=== PATIENT | female | born 1995 | race Caucasian/White ===

== ENCOUNTER 2021-08-01 13:18 | Inpatient (IN) | payer OTHER, SELFPAY ==
[2021-08-01] VITALS (18 sets, daily range): BP systolic 104–131; BP diastolic 53–76; PULSE 110–138; RESP 15–30; TEMP 36.7–38.1; O2SAT 80–100; BMI 22.9
[2021-08-01] MEDS: SODIUM CHLORIDE 0.9% 1,000 ML 1000 ML IV ×3 (13:55→18:21)
[2021-08-01] MEDS: ONDANSETRON 4 MG/2 ML INJ IV (13:55)
[2021-08-01 13:57] LABS: Add Manual Diff / Slide Review NO; Basophils Absolute Auto 0 /uL (0-100); Basophils Percent Auto 0.1 % (0-2); Eosinophils Absolute Auto 0 /uL (0-450); Hematocrit 40.3 % (36-46); Hemoglobin 12.5 g/dL (12.0-16.0); Lymphocytes Absolute Auto 2200 /uL (1100-4500); Lymphocytes Percent Auto 10.1 % (25-40); Mean Corpuscular HGB Conc 30.9 % (30-36); Mean Corpuscular Hemoglobin 25.3 PG (26-34); Monocytes Absolute Auto 800 /uL (0-900); Monocytes Percent Auto 3.4 % (3-14); Neutrophils Absolute Auto 19100 /uL (1500-7000); Neutrophils Percent Auto 86.4 % (50-75); Platelet Count 507 X10^3/uL (150-400); Red Blood Cell Count 4.92 X10^6/uL (4.0-5.2); Red Cell Distribution Width 15.2 % (11.6-14.8); White Blood Cell Count 22.2 X10^3/uL (4.5-11.0)
[2021-08-01 14:07] LABS: HEMOLYSIS < 15 (0-50)
[2021-08-01 14:12] LABS: Alanine Aminotransferase 32 IU/L (<35); Albumin Globulin Ratio 1.5 (1.0-2.8); Alkaline Phosphatase 107 U/L (38-126); Aspartate Aminotransferase 51 IU/L (14-36); BUN Creatinine Ratio 26.2 (6-22); Bilirubin Total 0.5 mg/dL (0.2-1.3); Blood Urea Nitrogen 22 mg/dL (7-17); Calcium 9.7 mg/dL (8.4-10.2); Carbon Dioxide 10 mmol/L (22-32); Chloride 106 mmol/L (98-107); Estimated Glomerular Filt Rate > 60.0 mL/min (>60); Globulin 3.3 g/dL (1.7-4.1); Glucose 357 mg/dL (70-100); Potassium 4.9 mmol/L (3.4-5.1); Sodium 138 mmol/L (137-145); Total Protein 8.3 g/dL (6.3-8.2)
[2021-08-01 14:14] LABS: Lactate (Lactic Acid) 2.1 mmol/L (0.7-2.1)
[2021-08-01 14:29] LABS: Procalcitonin 4.82 ng/mL (<0.5)
--- NOTE | 2021-08-01 14:29 | ED_ITS ---
HPI - General Adult General Chief complaint: Diabetic Problem Stated complaint: throwing up, diabetic Time Seen by Provider: 08/01/21 13:30 Source: patient and family (father) Mode of arrival: Wheelchair Limitations: no limitations History of Present Illness HPI narrative: This is a 26-year-old female who is an insulin-dependent diabetic. Patient has an insulin pump, she is on metformin, duloxetine, AcipHex Zofran as needed, Minocycline and Tri-Estrayalla. According to patient and her father she has been admitted 4 times in [place] for either DKA and/or gastroparesis. She has had an official swallow evaluation at [facility] in [place] been diagnosed with gastroparesis and has known retinopathy and even required injections into 1 of her eyes. She has not had any prior surgeries. States that her glucose has been high on her pump for the last several days. She flew out here yesterday from [place] to visit her family. She denies fevers or chills. No cold cough or congestion. No chest pain or shortness of breath she does have abdominal pain. She has been vomiting since yesterday evening. She denies any diarrhea or constipation. She states she has had some decrease in urine output but no dysuria, frequency or urgency. Patient has not been able to keep down fluids most recently. She is vaccinated for COVID she did have a coworker's test positive at the [facility] she works at in the last 1-2 weeks. She denies tobacco, alcohol or regular illicit drugs but they did try an edible gummy earlier today. She is accompanied by her father. Related Data Home Medications Medication Instructions Recorded Confirmed duloxetine 40 mg capsule,delayed 40 mg PO DAILY 08/01/21 08/01/21 release insulin aspart U-100 100 unit/mL 1 sliding scale dose SUBCUT 08/01/21 08/01/21 subcutaneous cartridge USEASDIRECTD metformin 500 mg tablet 1,000 mg PO BID 08/01/21 08/01/21 minocycline 100 mg capsule 100 mg PO DAILY 08/01/21 08/01/21 norgestimate-ethinyl estradiol 1 tab PO DAILY 08/01/21 08/01/21 0.18 mg/0.215mg/0.25mg-35 mcg(28)tablet (Tri-Estarylla) ondansetron 8 mg disintegrating 8 mg PO Q8H PRN 08/01/21 08/01/21 tablet phentermine 37.5 mg tablet 18.75 mg PO BID 08/01/21 08/01/21 Allergies Allergy/AdvReac Type Severity Reaction Status Date / Time No Known Drug Allergies Allergy Verified 08/01/21 15:27 Review of Systems Review of Systems ROS Unobtainable: All systems reviewed & are unremarkable except as noted in HPI and below Patient History Medical History Gastroparesis Retinopathy Surgical History No pertinent past surgical history Family History (Updated 08/01/21 @ 17:49 by Genaro Carrasquillo DO) Family/Other No problems noted. Father Hypertension Social History Smoking Status: Never smoker alcohol intake: current Exam Narrative Exam Narrative: GEN: Female, alert and oriented, patient appears to be in moderate distress. HEENT: Atraumatic, pupils are equal round reactive to light, extraocular movements are intact, nares are clear. HEART: Tachycardic but Regular rate and rhythm without murmur, clicks, rubs. No swelling bilateral lower extremities. LUNGS:Lungs clear to auscultation, no wheezes, rales, crackles, chest moves symmetrically, no tachypnea accessory muscle use. ABD:bowel sounds normal, soft, non-tender to palpation, no guarding, rebound, rigidity, no masses noted, no hepatosplenomegaly, patient had active dry heaves while I was in the room. :No CVA tenderness MSCL: Non-tender, no muscle atrophy, full range of motion NEURO:CN 2-12 intact, sensation normal SKIN: No rash, erythema or skin changes. Initial Vital Signs Initial Vital Signs: Vital Signs Temperature 98.3 F 08/01/21 13:26 Pulse Rate 131 H 08/01/21 13:26 Respiratory Rate 22 08/01/21 13:26 Blood Pressure 131/76 08/01/21 13:26 Pulse Oximetry 99 08/01/21 13:26 Scores GCS [place] coma scale eye opening: Spontaneous [place] coma scale verbal response: Orientated [place] coma scale motor response: Obey commands [place] coma scale total score: 15 Course Orders Ordered: ED Orders 08/01/21 13:31 EKG-12 Lead Stat 08/01/21 13:44 Complete Blood Count AUTO DIFF Stat Comprehensive Metabolic Panel Stat Ketones (Beta-Hydroxybutyrate) Stat Lactate (Lactic Acid) Stat Osmolality, Serum Stat Test Serum,Qual Stat Procalcitonin Stat 08/01/21 14:10 Blood Culture Stat 08/01/21 14:16 Venous Blood Gas Stat 08/01/21 15:30 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) Stat Acetaminophen (Acetaminophen 325 Mg Tablet) 650 mg PO Q6HR PRN PRN Reason: Fever Dextrose (Dextrose 50 % In Water 25 Gm/50 Ml Syringe) 25 gm IV PRN PRN PRN Reason: Hypoglycemia Duloxetine HCl (Duloxetine 20 Mg Capsule) 40 mg PO DAILY WARREN Enoxaparin Sodium (Enoxaparin 40 Mg/0.4 Ml Syringe) 40 mg SUBCUT DAILY WARREN INSULIN DRIP PREMIX (Myxredlin Drip Premix) 100 unit in 100 mls @ 6 mls/hr IV TITRATE WARREN; Protocol Last Titration: 08/01/21 17:23 Dose: 9.4 mls/hr, 9.4 mls/hr Documented by: LUBA Cosigned by: MSTWAYNE Admin: 08/01/21 15:53 Dose: 6 mls/hr, 6 mls/hr Documented by: KATHLEEN Cosigned by: JEAN-PIERRE Sodium Chloride (Normal Saline 0.9%) 1,000 mls @ 1,000 mls/hr IV BOLUS ONE Stop: 08/01/21 19:26 Metoclopramide HCl (Metoclopramide 10 Mg/2 Ml Inj) 10 mg IV Q6HR PRN PRN Reason: Nausea And Vomiting Non-Formulary Medication (Norgestimate-Ethinyl Estradiol [Tri-Estarylla]) 1 tab PO DAILY WARREN Ondansetron HCl (Ondansetron 4 Mg/2 Ml Inj) 4 mg IV Q4HR PRN PRN Reason: Nausea And Vomiting Discontinued Medications Sodium Chloride (Normal Saline 0.9%) 1,000 mls @ 1,000 mls/hr IV BOLUS ONE Stop: 08/01/21 14:30 Last Infusion: 08/01/21 17:10 Dose: 0 mls/hr Documented by: Admin: 08/01/21 13:55 Dose: 1,000 mls/hr Documented by: JEAN-PIERRE POTASSIUM CHLORIDE IN WATER (Potassium Cl 10 Meq/100 Ml Gabbi) 10 meq in 100 mls @ 100 mls/hr IV Q1H WARREN Stop: 08/01/21 16:59 Last Admin: 08/01/21 17:54 Dose: 100 mls/hr Documented by: Infusion: 08/01/21 17:09 Dose: 0 mls/hr Documented by: Admin: 08/01/21 15:53 Dose: 100 mls/hr Documented by: KATHLEEN Sodium Chloride (Normal Saline 0.9%) 1,000 mls @ 1,000 mls/hr IV BOLUS ONE Stop: 08/01/21 15:49 Last Admin: 08/01/21 15:54 Dose: 1,000 mls/hr Documented by: KATHLEEN Metoclopramide HCl (Metoclopramide 10 Mg/2 Ml Inj) 10 mg IV NOW ONE Stop: 08/01/21 14:46 Last Admin: 08/01/21 15:29 Dose: 10 mg Documented by: KATHLEEN Ondansetron HCl (Ondansetron 4 Mg/2 Ml Inj) 4 mg IV NOW ONE Stop: 08/01/21 13:32 Last Admin: 08/01/21 13:55 Dose: 4 mg Documented by: JEAN-PIERRE Consultations Consultation #1: Dr. Carrasquillo, hospitalist accepts with plan for ICU. Plan to initiate insulin drip, as well as K replacement. Patient appear to be in DKA, she has a pH of 7.198 on VBG. Anion gap of 22 with a bicarb of 10. Her K is 4.9 with a sodium of 138. She does have a leukocytosis, she has an elevated procalcitonin which was discussed. We have not obtained a urine sample to check for infection and COVID swab is pending. No other clear source of infection at this time. We discussed if hospitalist would like CT at this time they defer. Dr. Carrasquillo plans to discuss with spiritual counselor. Vital Signs Vital signs: Vital Signs - 8 hr 08/01/21 13:26 08/01/21 14:20 08/01/21 14:30 Temperature 98.3 F Pulse Rate 131 H 129 H 129 H Respiratory Rate 22 18 17 Blood Pressure 131/76 114/58 L Pulse Oximetry 99 100 100 08/01/21 15:00 08/01/21 15:30 08/01/21 16:00 Temperature Pulse Rate 132 H 132 H 134 H Respiratory Rate 30 H 22 25 H Blood Pressure 120/62 Pulse Oximetry 100 100 100 08/01/21 16:04 08/01/21 16:55 08/01/21 17:13 Temperature 98.1 F Pulse Rate 138 H 135 H 138 H Respiratory Rate 26 H 25 H 18 Blood Pressure 121/58 L 131/72 121/58 L Pulse Oximetry 100 100 100 Medical Decision Making Lab Data Result diagrams: 08/01/21 13:44 08/01/21 13:44 Labs: Lab Results 08/01/21 08/01/21 08/01/21 Range/Units 13:44 13:44 13:44 WBC 22.2 H (4.5-11.0) X10^3/uL RBC 4.92 (4.0-5.2) X10^6/uL Hgb 12.5 (12.0-16.0) g/dL Hct 40.3 (36-46) % MCV 82.0 (80-100) fL MCH 25.3 L (26-34) PG MCHC 30.9 (30-36) % RDW 15.2 H (11.6-14.8) % Plt Count 507 H (150-400) X10^3/uL Neut % (Auto) 86.4 H (50-75) % Lymph % (Auto) 10.1 L (25-40) % [place] % (Auto) 3.4 (3-14) % Eos % (Auto) 0.0 L (2-4) % Baso % (Auto) 0.1 (0-2) % Neut # (Auto) 29237 H (5491-9514) /uL Lymph # (Auto) 2200 (0717-6341) /uL [place] # (Auto) 800 (0-900) /uL Eos # (Auto) 0 (0-450) /uL Baso # (Auto) 0 (0-100) /uL VBG pH (7.33-7.43) VBG pCO2 (45-50) mmHg VBG pO2 (35-45) mmHg VBG HCO3 (23-28) mmol/L VBG Total CO2 (24-29) mmol/L VBG O2 Saturation (70-75) % VBG Base Excess (0-4) mmol/L Sodium 138 (137-145) mmol/L Potassium 4.9 (3.4-5.1) mmol/L Chloride 106 (98-107) mmol/L Carbon Dioxide 10 L (22-32) mmol/L BUN 22 H (7-17) mg/dL Creatinine 0.84 (0.52-1.04) mg/dL Estimated GFR > 60.0 (>60) mL/min BUN/Creatinine Ratio 26.2 H (6-22) Glucose 357 H (70-100) mg/dL Lactate 2.1 (0.7-2.1) mmol/L Calcium 9.7 (8.4-10.2) mg/dL Total Bilirubin 0.5 (0.2-1.3) mg/dL AST 51 H (14-36) IU/L ALT 32 (<35) IU/L Alkaline Phosphatase 107 (38-126) U/L Total Protein 8.3 H (6.3-8.2) g/dL Albumin 5.0 (3.5-5.0) g/dL Globulin 3.3 (1.7-4.1) g/dL Albumin/Globulin Ratio 1.5 (1.0-2.8) Procalcitonin 4.82 H (<0.5) ng/mL Serum , Qual (Negative) Ketones 7.00 H (<0.27) mmol/L SARS-CoV-2 (PCR) (Negative) 08/01/21 08/01/21 08/01/21 Range/Units 13:44 14:16 15:30 WBC (4.5-11.0) X10^3/uL RBC (4.0-5.2) X10^6/uL Hgb (12.0-16.0) g/dL Hct (36-46) % MCV (80-100) fL MCH (26-34) PG MCHC (30-36) % RDW (11.6-14.8) % Plt Count (150-400) X10^3/uL Neut % (Auto) (50-75) % Lymph % (Auto) (25-40) % [place] % (Auto) (3-14) % Eos % (Auto) (2-4) % Baso % (Auto) (0-2) % Neut # (Auto) (9503-5923) /uL Lymph # (Auto) (2735-9427) /uL [place] # (Auto) (0-900) /uL Eos # (Auto) (0-450) /uL Baso # (Auto) (0-100) /uL VBG pH 7.20 L* (7.33-7.43) VBG pCO2 32.5 L (45-50) mmHg VBG pO2 42 (35-45) mmHg VBG HCO3 13 L (23-28) mmol/L VBG Total CO2 14 L (24-29) mmol/L VBG O2 Saturation 67 L (70-75) % VBG Base Excess -15.0 L (0-4) mmol/L Sodium (137-145) mmol/L Potassium (3.4-5.1) mmol/L Chloride (98-107) mmol/L Carbon Dioxide (22-32) mmol/L BUN (7-17) mg/dL Creatinine (0.52-1.04) mg/dL Estimated GFR (>60) mL/min BUN/Creatinine Ratio (6-22) Glucose (70-100) mg/dL Lactate (0.7-2.1) mmol/L Calcium (8.4-10.2) mg/dL Total Bilirubin (0.2-1.3) mg/dL AST (14-36) IU/L ALT (<35) IU/L Alkaline Phosphatase (38-126) U/L Total Protein (6.3-8.2) g/dL Albumin (3.5-5.0) g/dL Globulin (1.7-4.1) g/dL Albumin/Globulin Ratio (1.0-2.8) Procalcitonin (<0.5) ng/mL Serum , Qual Negative (Negative) Ketones (<0.27) mmol/L SARS-CoV-2 (PCR) Negative (Negative) 08/01/21 Range/Units 16:25 WBC (4.5-11.0) X10^3/uL RBC (4.0-5.2) X10^6/uL Hgb (12.0-16.0) g/dL Hct (36-46) % MCV (80-100) fL MCH (26-34) PG MCHC (30-36) % RDW (11.6-14.8) % Plt Count (150-400) X10^3/uL Neut % (Auto) (50-75) % Lymph % (Auto) (25-40) % [place] % (Auto) (3-14) % Eos % (Auto) (2-4) % Baso % (Auto) (0-2) % Neut # (Auto) (7897-2946) /uL Lymph # (Auto) (8713-8380) /uL [place] # (Auto) (0-900) /uL Eos # (Auto) (0-450) /uL Baso # (Auto) (0-100) /uL VBG pH (7.33-7.43) VBG pCO2 (45-50) mmHg VBG pO2 (35-45) mmHg VBG HCO3 (23-28) mmol/L VBG Total CO2 (24-29) mmol/L VBG O2 Saturation (70-75) % VBG Base Excess (0-4) mmol/L Sodium (137-145) mmol/L Potassium (3.4-5.1) mmol/L Chloride (98-107) mmol/L Carbon Dioxide (22-32) mmol/L BUN (7-17) mg/dL Creatinine (0.52-1.04) mg/dL Estimated GFR (>60) mL/min BUN/Creatinine Ratio (6-22) Glucose (70-100) mg/dL Lactate 1.9 (0.7-2.1) mmol/L Calcium (8.4-10.2) mg/dL Total Bilirubin (0.2-1.3) mg/dL AST (14-36) IU/L ALT (<35) IU/L Alkaline Phosphatase (38-126) U/L Total Protein (6.3-8.2) g/dL Albumin (3.5-5.0) g/dL Globulin (1.7-4.1) g/dL Albumin/Globulin Ratio (1.0-2.8) Procalcitonin (<0.5) ng/mL Serum , Qual (Negative) Ketones (<0.27) mmol/L SARS-CoV-2 (PCR) (Negative) Point of Care Testing Glucose POC 391 Point of care testing: Point of Care Testing Glucose POC 391 ECG Data Attestation: I personally reviewed and interpreted this ECG as follows: Prior ECG tracings: not available for review Interpretation: Sinus tachycardia rate of 120 8p are 114 QRS of [address] QTC [address] No acute ST changes. MDM Narrative Medical decision making narrative: This is a 26-year-old female who comes to the emergency department with complaint of persistent vomiting in the setting of insulin-dependent diabetes. Patient appears to be in DKA today with a pH of 7.198, bicarb of 10, anion gap of 22 and positive ketones. Patient's started on insulin drip, fluids with 20 mEq K replacement based on her potassium of 4.9. Patient case was discussed with the hospitalist who accepts with plan for admission to the intensive care unit. Critical Care Time Critical Care Time Critical Care Time: Yes Total Critical Care Time: 55 Attestation: The high probability of a clinically significant, sudden or life threatening deterioration of the [] system(s) required my full and direct attention, inte rvention and personal management. The aggregate critical care time was [] minutes. This time is in addition to time spent performing reported procedures but includes the following: [x] Data Review and interpretation [x] Patient assessment and monitoring of vital signs [x] Documentation [x] Medication orders and management Discharge Plan Departure Patient Disposition: Admitted As Inpatient Clinical Impression: DKA (diabetic ketoacidosis), Vomiting Admit Date/Time: 08/01/21 17:27 Admit Provider: Genaro Carrasquillo
[2021-08-01 14:57] LABS: HCO3 VBG 13 mmol/L (23-28); Oxygen Saturation VBG 67 % (70-75); PCO2 VBG 32.5 mmHg (45-50); PO2 VBG 42 mmHg (35-45); Total CO2 VBG 14 mmol/L (24-29)
[2021-08-01 15:29] LABS: Pregnancy Test Serum,Qual Negative (Negative)
[2021-08-01] MEDS: METOCLOPRAMIDE 10 MG/2 ML INJ IV (15:29)
[2021-08-01 15:49] LABS: Reflexed Lactate in 2 Hours Y
[2021-08-01] MEDS: INSULIN DRIP PREMIX 100 UNIT/100 ML PLAST..BAG 6 UNIT IV (15:53)
[2021-08-01] MEDS: POTASSIUM CHLORIDE IN WATER 10 MEQ/100 ML PIGGYBACK 100 MEQ IV ×4 (15:53→23:27)
--- NOTE | 2021-08-01 16:16 | PC.NURSE ---
Patient removed her personal insulin pump from her right thigh @ 2745 per doc request.
--- NOTE | 2021-08-01 16:31 | PC.NURSE ---
Patient has hx of gatroparesis 4x this year *Sep, Oct, Nov and Apr). All 4 episodes required inpatient tx per father.
[2021-08-01 16:33] LABS: COVID19 - ADMIT (NP swab/PCR) Negative (Negative)
[2021-08-01 16:45] LABS: Lactate 2HR (Lactic Acid Rflx) 1.9 mmol/L (0.7-2.1)
--- NOTE | 2021-08-01 17:46 | PM.HP.1 ---
History of Present Illness History of Present Illness Date Patient Seen: 08/01/21 Time Patient Seen: 17:46 Chief complaint: throwing up, diabetic Narrative: This is a 26-year-old female with a past medical history of type 1 diabetes and gastroparesis, with frequent recent admissions for DKA, recently traveled from [place] to visit family who presents with abdominal pain, nausea, and vomiting since 7:00 p.m. yesterday. She has had difficulty keeping her blood sugars down over the past couple of days. She has not changed her insulin pump since prior to her flight. She denies any issues at her pump site that she is aware of. She denies any recent fever, chills, chest pain, shortness of breath. In the emergency room, the patient was tachycardic and tachypneic, but the remainder of her vital signs were unremarkable. Initial laboratory evaluation showed a WBC of 22.2, platelet count of 507, and hemoglobin of 12.5. VBG showed a pH of 7.20 with a bicarb of 13. Chemistries revealed a bicarb of 10 with an anion gap of 22. Blood glucose was 357. Lactate was 1.9. Procalcitonin was 4.82. Urine prenancy test was negative. Serum ketones were elevated at 7. no imaging was performed. PFH: Father with HTN, mother's side unknown as she came from [facility]. Unable to accurately assess social history given father in room and patient's current severe lethargy. Patient History Medical History Gastroparesis Retinopathy Surgical History No pertinent past surgical history Family & Social History Family History (Updated 08/01/21 @ 17:49 by Genaro Carrasquillo DO) Family/Other No problems noted. Father Hypertension Meds Home Medications and Allergies Home Medications Medication Instructions Recorded Confirmed Type duloxetine 40 mg capsule,delayed 40 mg PO DAILY 08/01/21 08/01/21 History release insulin aspart U-100 100 unit/mL 1 sliding scale dose SUBCUT 08/01/21 08/01/21 History subcutaneous cartridge USEASDIRECTD metformin 500 mg tablet 1,000 mg PO BID 08/01/21 08/01/21 History minocycline 100 mg capsule 100 mg PO DAILY 08/01/21 08/01/21 History norgestimate-ethinyl estradiol 1 tab PO DAILY 08/01/21 08/01/21 History 0.18 mg/0.215mg/0.25mg-35 mcg(28)tablet (Tri-Estarylla) ondansetron 8 mg disintegrating 8 mg PO Q8H PRN 08/01/21 08/01/21 History tablet phentermine 37.5 mg tablet 18.75 mg PO BID 08/01/21 08/01/21 History Allergies Allergy/AdvReac Type Severity Reaction Status Date / Time No Known Drug Allergies Allergy Verified 08/01/21 15:27 Review of Systems Review of Systems Narrative: All other systems reviewed with the patient and are negative unless otherwise stated. Exam Vital Signs (past 8 hours): - 08/01/21 13:26 08/01/21 14:20 08/01/21 14:30 Temperature 98.3 F Pulse Rate 131 H 129 H 129 H Respiratory Rate 22 18 17 Blood Pressure 131/76 114/58 L Pulse Oximetry 99 100 100 08/01/21 15:00 08/01/21 15:30 08/01/21 16:00 Temperature Pulse Rate 132 H 132 H 134 H Respiratory Rate 30 H 22 25 H Blood Pressure 120/62 Pulse Oximetry 100 100 100 08/01/21 16:04 08/01/21 17:13 Temperature Pulse Rate 138 H 138 H Respiratory Rate 26 H 18 Blood Pressure 121/58 L 121/58 L Pulse Oximetry 100 100 Oxygen Delivery Method Room Air Narrative Exam Narrative: GENERAL APPEARANCE: Acutely ill-appearing young female, lethargic. SKIN: Inspection of the skin reveals no rashes, ulcerations or petechiae. HEENT: Normocephalic atraumatic, extraocular muscles are intact, oropharynx is clear and mucous membranes are dry, neck is supple without adenopathy NECK: Supple and symmetric. There was no thyroid enlargement, and no tenderness, or masses were felt. CHEST: Normal AP diameter and normal contour without any kyphoscoliosis. LUNGS: Auscultation of the lungs revealed no wheezes, rhonchi, or rales. CARDIOVASCULAR: Tachycardic with regular rhythm, no murmurs, rubs, or gallops. ABDOMEN: Soft, nontender, and nondistended MUSCULOSKELETAL: There was no tenderness or effusions noted. EXTREMITIES: No cyanosis, clubbing or edema. NEUROLOGIC: Alert at times but very lethargic. Falls asleep easily. No focal neurological deficits. Objective ECG Impression: Sinus tachycardia Labs Result Diagrams: 08/01/21 13:44 08/01/21 13:44 Labs: Laboratory Results - last 24 hr 08/01/21 08/01/21 08/01/21 13:44 13:44 13:44 WBC 22.2 H RBC 4.92 Hgb 12.5 Hct 40.3 MCV 82.0 MCH 25.3 L MCHC 30.9 RDW 15.2 H Plt Count 507 H Neut % (Auto) 86.4 H Lymph % (Auto) 10.1 L [place] % (Auto) 3.4 Eos % (Auto) 0.0 L Baso % (Auto) 0.1 Neut # (Auto) 38414 H Lymph # (Auto) 2200 [place] # (Auto) 800 Eos # (Auto) 0 Baso # (Auto) 0 VBG pH VBG pCO2 VBG pO2 VBG HCO3 VBG Total CO2 VBG O2 Saturation VBG Base Excess Sodium 138 Potassium 4.9 Chloride 106 Carbon Dioxide 10 L BUN 22 H Creatinine 0.84 Estimated GFR > 60.0 BUN/Creatinine Ratio 26.2 H Glucose 357 H Lactate 2.1 Calcium 9.7 Total Bilirubin 0.5 AST 51 H ALT 32 Alkaline Phosphatase 107 Total Protein 8.3 H Albumin 5.0 Globulin 3.3 Albumin/Globulin Ratio 1.5 Procalcitonin 4.82 H Serum , Qual Ketones 7.00 H SARS-CoV-2 (PCR) 08/01/21 08/01/21 08/01/21 13:44 14:16 15:30 WBC RBC Hgb Hct MCV MCH MCHC RDW Plt Count Neut % (Auto) Lymph % (Auto) [place] % (Auto) Eos % (Auto) Baso % (Auto) Neut # (Auto) Lymph # (Auto) [place] # (Auto) Eos # (Auto) Baso # (Auto) VBG pH 7.20 L* VBG pCO2 32.5 L VBG pO2 42 VBG HCO3 13 L VBG Total CO2 14 L VBG O2 Saturation 67 L VBG Base Excess -15.0 L Sodium Potassium Chloride Carbon Dioxide BUN Creatinine Estimated GFR BUN/Creatinine Ratio Glucose Lactate Calcium Total Bilirubin AST ALT Alkaline Phosphatase Total Protein Albumin Globulin Albumin/Globulin Ratio Procalcitonin Serum , Qual Negative Ketones SARS-CoV-2 (PCR) Negative 08/01/21 16:25 WBC RBC Hgb Hct MCV MCH MCHC RDW Plt Count Neut % (Auto) Lymph % (Auto) [place] % (Auto) Eos % (Auto) Baso % (Auto) Neut # (Auto) Lymph # (Auto) [place] # (Auto) Eos # (Auto) Baso # (Auto) VBG pH VBG pCO2 VBG pO2 VBG HCO3 VBG Total CO2 VBG O2 Saturation VBG Base Excess Sodium Potassium Chloride Carbon Dioxide BUN Creatinine Estimated GFR BUN/Creatinine Ratio Glucose Lactate 1.9 Calcium Total Bilirubin AST ALT Alkaline Phosphatase Total Protein Albumin Globulin Albumin/Globulin Ratio Procalcitonin Serum , Qual Ketones SARS-CoV-2 (PCR) Assessment & Plan Assessment & Plan narrative: This is a 26-year-old female with a past medical history of type 1 diabetes and gastroparesis, with frequent recent admissions for DKA, recently traveled from [place] to visit family who presents with abdominal pain, nausea, and vomiting since 7:00 p.m. yesterday. She is admitted to the ICU with diabetic ketoacidosis. 1. DKA in type 1 diabetes, present on admission - pH 7.2, AG 22, CO2 10 on admission labs. Elevated serum ketones. - continue with insulin infusion per protocol, q1h glucose. q4 hr BMP ordered. Initial K 4.9, follow closely. - given leukocytosis check UA and CXR to evaluate for possible infectious causes. Also with elevated procalcitonin. Though suspect component of dehydration. Suspect insulin pump malfunction or medication issue given plane flight. COVID 19 test negative. - continue IVF, give another bolus given tachycardia. - hold home metformin during admission (started for weight loss) - A1c in AM 2. Gastroparesis - continue reglan for now, restart home medications when able. 3. Metabolic encephalopathy - secondary to DKA. GCS 14. - continue treatment of DKA as noted above, evaluate for possible infection as above. Code: Full, surrogate is patient's father at bedside. DVT: Lovenox daily Dispo: Admit to ICU I have utilized all available immediate resources to obtain, update, or review the patient's current medications. I spent 40 minutes providing critical care management this patient. This excludes time spent in performing separately billed procedures. COVID-19 COVID-19 status: Negative Time Spent With Patient Critical Care time: I spent a total of [] minutes of critical care time on this patient's care today; this time is exclusive of procedural time. Quality MIPS - Admit I confirm the patient?s Advance Care Plan is present, Code status is documented, Surrogate decision maker is in patient?s record [If Yes, STOP here]: Yes
--- NOTE | 2021-08-01 17:52 | DI.RAD.S_ITS ---
PROCEDURE: XR CHEST 1V INDICATIONS: DKA , leukocytosis TECHNIQUE: One view of the chest was acquired. COMPARISON: None. FINDINGS: Surgical changes and devices: None. Lungs and pleura: Lungs are clear. No pleural effusions or pneumothorax. Mediastinum: Mediastinal contours appear normal. Heart size is normal. Bones and chest wall: No suspicious bony lesions. Overlying soft tissues appear unremarkable. IMPRESSION: No acute cardiopulmonary pathology. Dictated by: Kailash Thomas M.D. on 08/01/2021 at 18:59 Approved by: Kailash Thomas M.D. on 08/01/2021 at 19:00
[2021-08-01 18:35] LABS: Appearance Urine UA CLEAR; Bilirubin Urine UA NEGATIVE (NEGATIVE); Color Urine UA YELLOW; Glucose Urine UA 2+ g/dL (Negative); Ketones Urine UA 3+ (NEGATIVE); Leukocyte Esterase Urine UA NEGATIVE (NEGATIVE); Nitrite Urine UA NEGATIVE (Negative); Occult Blood Urine UA TRACE-LYSED (Negative); Protein Urine UA TRACE (Negative); Specific Gravity Urine UA 1.025 (1.000-1.035); Urobilinogen Urine UA 0.2 E.U./dL (0.2)
[2021-08-01 18:38] LABS: BUN Creatinine Ratio 25.3 (6-22); Blood Urea Nitrogen 20 mg/dL (7-17); Calcium 8.7 mg/dL (8.4-10.2); Chloride 113 mmol/L (98-107); Estimated Glomerular Filt Rate > 60.0 mL/min (>60); Glucose 328 mg/dL (70-100); HEMOLYSIS < 15 (0-50); Potassium 4.3 mmol/L (3.4-5.1); Sodium 142 mmol/L (137-145)
[2021-08-01 18:40] LABS: Ur Creatinine Normal (Normal); Ur Specific Gravity Normal (Normal); Urine Tetrahydrocannabinol Negative (Negative); Urine pH Normal (Normal)
[2021-08-01 18:41] LABS: UR Morphine/Opiate cutoff 300 Negative (Negative); Urine Amphetamines Negative (Negative); Urine Barbiturates Negative (Negative); Urine Benzodiazepines Negative (Negative); Urine Cocaine Negative (Negative); Urine MDMA Negative (Negative); Urine Methadone Negative (Negative); Urine Methamphetamines Negative (Negative); Urine Oxycodone Negative (Negative); Urine Phencyclidine Negative (Negative); Urine Tricyclic Antidepressant Negative (Negative)
[2021-08-01 18:43] LABS: Bacteria Urine Occasional (0-1); Culture Indicated Urine Cult Not Indicated; Mucus Urine 1+ (Negative); RBC Urine 0-1/HPF (0-5/HPF); Squamous Epithelial Cell Urine 5-10 /HPF (0-5/HPF); WBC Urine 0-1/HPF (0-5/HPF)
--- NOTE | 2021-08-01 18:44 | PC.ADMIT ---
[id number] Admission Note: The patient,Lizzy Olivares,26 y/o, was given written information regarding hospital policies, unit procedures and contact persons. Patient's smoking status: Never smoker. Vital Signs - 8 hr 08/01/21 13:26 08/01/21 14:20 08/01/21 14:30 Temperature 98.3 F Pulse Rate 131 H 129 H 129 H Respiratory Rate 22 18 17 Blood Pressure 131/76 114/58 L Pulse Oximetry 99 100 100 08/01/21 15:00 08/01/21 15:30 08/01/21 16:00 Temperature Pulse Rate 132 H 132 H 134 H Respiratory Rate 30 H 22 25 H Blood Pressure 120/62 Pulse Oximetry 100 100 100 08/01/21 16:04 08/01/21 16:55 08/01/21 17:13 Temperature 98.1 F Pulse Rate 138 H 135 H 138 H Respiratory Rate 26 H 25 H 18 Blood Pressure 121/58 L 131/72 121/58 L Pulse Oximetry 100 100 100 Patient admitted from ED under hospitalist care for DKA. On insulin gtt at 6ml/hr, titrated to hourly BGs. RA, A/Ox4 but lethargic. BP and HR elevated, notified, NS bolus and potassium 10meq running from ED. Actively N/V, made NPO. Using bedside commode. Patient oriented to room, father at bedside.
--- NOTE | 2021-08-01 20:44 | PM.CN.EICU ---
History of Present Illness Consult details Chief complaint: throwing up, diabetic :: This patient was seen via real time interactive two-way audiovisual telecommunication. 26 y.o. female w/ PMHx of T1DM, diabetic gastroparesis and frequent DKA who presented with abdominal pain, nausea and vomiting. Initial AG was 22 with HCO3 of 10; glucose was 357 and the pH was 7.2. She was started on the DKA protocol. UA and portable CXR are inconsistent with infection. Urine was (-). [facility] Medical History Gastroparesis Retinopathy Surgical History No pertinent past surgical history Family History Family/Other No problems noted. Father Hypertension Social History Smoking Status: Never smoker alcohol intake: current Current Medications Current Medications Medications: Home Medications duloxetine 40 mg capsule,delayed release 40 mg PO DAILY 08/01/21 [History Confirmed 08/01/21] insulin aspart U-100 100 unit/mL subcutaneous cartridge 1 sliding scale dose SUBCUT USEASDIRECTD 08/01/21 [History Confirmed 08/01/21] metformin 500 mg tablet 1,000 mg PO BID 08/01/21 [History Confirmed 08/01/21] minocycline 100 mg capsule 100 mg PO DAILY 08/01/21 [History Confirmed 08/01/21] norgestimate-ethinyl estradiol 0.18 mg/0.215mg/0.25mg-35 mcg(28)tablet (Tri-Estarylla) 1 tab PO DAILY 08/01/21 [History Confirmed 08/01/21] ondansetron 8 mg disintegrating tablet 8 mg PO Q8H PRN 08/01/21 [History Confirmed 08/01/21] phentermine 37.5 mg tablet 18.75 mg PO BID 08/01/21 [History Confirmed 08/01/21] Visit Medications (administered) Generic Name Dose Route Start Last Admin Trade Name Freq PRN Reason Stop Dose Admin INSULIN DRIP PREMIX 100 unit in 100 mls @ 6 mls/hr 08/01/21 14:45 08/01/21 19:29 Myxredlin Drip Premix IV 6.3 mls/hr TITRATE WARREN 6.3 mls/hr Titration Protocol Review of Systems Review of Systems Narrative: not performed as patient is sleeping Exam Vital Signs (past 8 hours): - 08/01/21 13:26 08/01/21 14:20 08/01/21 14:30 Temperature 98.3 F Pulse Rate 131 H 129 H 129 H Respiratory Rate 22 18 17 Blood Pressure 131/76 114/58 L Pulse Oximetry 99 100 100 08/01/21 15:00 08/01/21 15:30 08/01/21 16:00 Temperature Pulse Rate 132 H 132 H 134 H Respiratory Rate 30 H 22 25 H Blood Pressure 120/62 Pulse Oximetry 100 100 100 08/01/21 16:04 08/01/21 16:30 08/01/21 16:55 Temperature 98.1 F Pulse Rate 138 H 138 H 135 H Respiratory Rate 26 H 22 25 H Blood Pressure 121/58 L 131/72 Pulse Oximetry 100 100 100 08/01/21 17:01 08/01/21 17:13 08/01/21 20:00 Temperature 100.6 F H Pulse Rate 138 H 123 H Respiratory Rate 18 18 Blood Pressure 121/58 L 104/57 L Pulse Oximetry 80 L 100 99 Oxygen Delivery Method Room Air Oxygen Flow Rate 0 Narrative Exam Narrative: young female who is sleeping Resp Effort & Inspection: normal respiratory effort Cardio Rate: tachycardic Objective Labs Result Diagrams: 08/01/21 13:44 08/01/21 18:08 Labs: Laboratory Results - last 24 hr 08/01/21 08/01/21 08/01/21 13:44 13:44 13:44 WBC 22.2 H RBC 4.92 Hgb 12.5 Hct 40.3 MCV 82.0 MCH 25.3 L MCHC 30.9 RDW 15.2 H Plt Count 507 H Neut % (Auto) 86.4 H Lymph % (Auto) 10.1 L [place] % (Auto) 3.4 Eos % (Auto) 0.0 L Baso % (Auto) 0.1 Neut # (Auto) 07528 H Lymph # (Auto) 2200 [place] # (Auto) 800 Eos # (Auto) 0 Baso # (Auto) 0 VBG pH VBG pCO2 VBG pO2 VBG HCO3 VBG Total CO2 VBG O2 Saturation VBG Base Excess Sodium 138 Potassium 4.9 Chloride 106 Carbon Dioxide 10 L BUN 22 H Creatinine 0.84 Estimated GFR > 60.0 BUN/Creatinine Ratio 26.2 H Glucose 357 H Lactate 2.1 Calcium 9.7 Total Bilirubin 0.5 AST 51 H ALT 32 Alkaline Phosphatase 107 Total Protein 8.3 H Albumin 5.0 Globulin 3.3 Albumin/Globulin Ratio 1.5 Procalcitonin 4.82 H Serum , Qual Urine Color Urine Appearance Urine pH Ur Specific [place] Urine Protein Urine Glucose (UA) Urine Ketones Urine Occult Blood Urine Nitrate Urine Bilirubin Urine Urobilinogen Ur Leukocyte Esterase Urine RBC Urine WBC Ur Squamous Epith Cells Urine Bacteria Urine Mucus Ur Culture Indicated? U Opiates 300ng/mL cut Ur Oxycodone Screen Urine Methadone Screen Ur Barbiturates Screen U Tricyclic Antidepress Ur Phencyclidine Scrn Ur Amphetamines Screen U Methamphetamines Scrn Ur MDMA Scrn (Ecstasy) U Benzodiazepines Scrn Urine Cocaine Screen U Marijuana (THC) Screen Ketones 7.00 H SARS-CoV-2 (PCR) 08/01/21 08/01/21 08/01/21 13:44 14:16 15:30 WBC RBC Hgb Hct MCV MCH MCHC RDW Plt Count Neut % (Auto) Lymph % (Auto) [place] % (Auto) Eos % (Auto) Baso % (Auto) Neut # (Auto) Lymph # (Auto) [place] # (Auto) Eos # (Auto) Baso # (Auto) VBG pH 7.20 L* VBG pCO2 32.5 L VBG pO2 42 VBG HCO3 13 L VBG Total CO2 14 L VBG O2 Saturation 67 L VBG Base Excess -15.0 L Sodium Potassium Chloride Carbon Dioxide BUN Creatinine Estimated GFR BUN/Creatinine Ratio Glucose Lactate Calcium Total Bilirubin AST ALT Alkaline Phosphatase Total Protein Albumin Globulin Albumin/Globulin Ratio Procalcitonin Serum , Qual Negative Urine Color Urine Appearance Urine pH Ur Specific [place] Urine Protein Urine Glucose (UA) Urine Ketones Urine Occult Blood Urine Nitrate Urine Bilirubin Urine Urobilinogen Ur Leukocyte Esterase Urine RBC Urine WBC Ur Squamous Epith Cells Urine Bacteria Urine Mucus Ur Culture Indicated? U Opiates 300ng/mL cut Ur Oxycodone Screen Urine Methadone Screen Ur Barbiturates Screen U Tricyclic Antidepress Ur Phencyclidine Scrn Ur Amphetamines Screen U Methamphetamines Scrn Ur MDMA Scrn (Ecstasy) U Benzodiazepines Scrn Urine Cocaine Screen U Marijuana (THC) Screen Ketones SARS-CoV-2 (PCR) Negative 08/01/21 08/01/21 08/01/21 16:25 18:08 18:20 WBC RBC Hgb Hct MCV MCH MCHC RDW Plt Count Neut % (Auto) Lymph % (Auto) [place] % (Auto) Eos % (Auto) Baso % (Auto) Neut # (Auto) Lymph # (Auto) [place] # (Auto) Eos # (Auto) Baso # (Auto) VBG pH VBG pCO2 VBG pO2 VBG HCO3 VBG Total CO2 VBG O2 Saturation VBG Base Excess Sodium 142 Potassium 4.3 Chloride 113 H Carbon Dioxide 9 L* BUN 20 H Creatinine 0.79 Estimated GFR > 60.0 BUN/Creatinine Ratio 25.3 H Glucose 328 H Lactate 1.9 Calcium 8.7 Total Bilirubin AST ALT Alkaline Phosphatase Total Protein Albumin Globulin Albumin/Globulin Ratio Procalcitonin Serum , Qual Urine Color Yellow Urine Appearance Clear Urine pH 5.0 Ur Specific [place] 1.025 Urine Protein Trace H Urine Glucose (UA) 2+ H Urine Ketones 3+ H Urine Occult Blood Trace-lysed Urine Nitrate Negative Urine Bilirubin Negative Urine Urobilinogen 0.2 Ur Leukocyte Esterase Negative Urine RBC 0-1/hpf Urine WBC 0-1/hpf Ur Squamous Epith Cells 5-10 /hpf H Urine Bacteria Occasional (0-1) Urine Mucus 1+ H Ur Culture Indicated? Cult not indicated U Opiates 300ng/mL cut Ur Oxycodone Screen Urine Methadone Screen Ur Barbiturates Screen U Tricyclic Antidepress Ur Phencyclidine Scrn Ur Amphetamines Screen U Methamphetamines Scrn Ur MDMA Scrn (Ecstasy) U Benzodiazepines Scrn Urine Cocaine Screen U Marijuana (THC) Screen Ketones SARS-CoV-2 (PCR) 08/01/21 18:20 WBC RBC Hgb Hct MCV MCH MCHC RDW Plt Count Neut % (Auto) Lymph % (Auto) [place] % (Auto) Eos % (Auto) Baso % (Auto) Neut # (Auto) Lymph # (Auto) [place] # (Auto) Eos # (Auto) Baso # (Auto) VBG pH VBG pCO2 VBG pO2 VBG HCO3 VBG Total CO2 VBG O2 Saturation VBG Base Excess Sodium Potassium Chloride Carbon Dioxide BUN Creatinine Estimated GFR BUN/Creatinine Ratio Glucose Lactate Calcium Total Bilirubin AST ALT Alkaline Phosphatase Total Protein Albumin Globulin Albumin/Globulin Ratio Procalcitonin Serum , Qual Urine Color Urine Appearance Urine pH Ur Specific [place] Urine Protein Urine Glucose (UA) Urine Ketones Urine Occult Blood Urine Nitrate Urine Bilirubin Urine Urobilinogen Ur Leukocyte Esterase Urine RBC Urine WBC Ur Squamous Epith Cells Urine Bacteria Urine Mucus Ur Culture Indicated? U Opiates 300ng/mL cut Negative Ur Oxycodone Screen Negative Urine Methadone Screen Negative Ur Barbiturates Screen Negative U Tricyclic Antidepress Negative Ur Phencyclidine Scrn Negative Ur Amphetamines Screen Negative U Methamphetamines Scrn Negative Ur MDMA Scrn (Ecstasy) Negative U Benzodiazepines Scrn Negative Urine Cocaine Screen Negative U Marijuana (THC) Screen Negative Ketones SARS-CoV-2 (PCR) Assessment & Plan Assessment and plan (1) DKA (diabetic ketoacidosis): Status: Acute Plan: -Continue DKA protocol as per bedside team
[2021-08-01] MEDS: ACETAMINOPHEN 650 MG SUPP PR (20:52)
[2021-08-01] MEDS: DEXTROSE 5%-0.45% NS 1,000 ML 94 ML IV (21:02)
[2021-08-01 22:11] LABS: BUN Creatinine Ratio 32.8 (6-22); Blood Urea Nitrogen 19 mg/dL (7-17); Calcium 8.3 mg/dL (8.4-10.2); Carbon Dioxide 18 mmol/L (22-32); Chloride 117 mmol/L (98-107); Estimated Glomerular Filt Rate > 60.0 mL/min (>60); Glucose 195 mg/dL (70-100); HEMOLYSIS 20 (0-50); Potassium 4.1 mmol/L (3.4-5.1); Sodium 141 mmol/L (137-145)
--- NOTE | 2021-08-01 23:37 | PC.NURSE ---
ANION GAP: 10.1; BICARB: 18; PATIENT IS VERY LETHARGIC AND NOT ABLE TO TOLERATE PO INTAKE. PATIENT IS FOLLOWING COMMANDS, BUT WILL NOT OPEN EYES SPONTANEOUSLY.
[2021-08-02] VITALS (14 sets, daily range): BP systolic 111–147; BP diastolic 55–95; PULSE 108–123; RESP 13–27; TEMP 36.1–37.3; O2SAT 99–100
[2021-08-02] MEDS: DEXTROSE 10 % IN WATER 1,000 ML 62.5 ML IV (01:08)
[2021-08-02] MEDS: DEXTROSE 5%-0.45% NS 1,000 ML 94 ML IV ×4 (02:21→21:13)
[2021-08-02 05:44] LABS: Add Manual Diff / Slide Review NO; Basophils Absolute Auto 0 /uL (0-100); Eosinophils Absolute Auto 0 /uL (0-450); Hemoglobin 10.6 g/dL (12.0-16.0); Lymphocytes Absolute Auto 2000 /uL (1100-4500); Lymphocytes Percent Auto 9.3 % (25-40); Mean Corpuscular Hemoglobin 25.7 PG (26-34); Mean Corpuscular Volume 80.5 fL (80-100); Monocytes Absolute Auto 1500 /uL (0-900); Neutrophils Absolute Auto 17600 /uL (1500-7000); Neutrophils Percent Auto 83.7 % (50-75); Platelet Count 414 X10^3/uL (150-400); Red Cell Distribution Width 14.8 % (11.6-14.8); White Blood Cell Count 21.1 X10^3/uL (4.5-11.0)
[2021-08-02 05:45] LABS: Alanine Aminotransferase 24 IU/L (<35); Albumin 3.5 g/dL (3.5-5.0); Albumin Globulin Ratio 1.3 (1.0-2.8); Alkaline Phosphatase 65 U/L (38-126); Aspartate Aminotransferase 31 IU/L (14-36); BUN Creatinine Ratio 29.3 (6-22); Bilirubin Total 0.4 mg/dL (0.2-1.3); Blood Urea Nitrogen 17 mg/dL (7-17); Calcium 8.4 mg/dL (8.4-10.2); Carbon Dioxide 18 mmol/L (22-32); Chloride 115 mmol/L (98-107); Estimated Glomerular Filt Rate > 60.0 mL/min (>60); Globulin 2.7 g/dL (1.7-4.1); Glucose 118 mg/dL (70-100); HEMOLYSIS < 15 (0-50); Magnesium 2.1 mg/dL (1.6-2.3); Potassium 3.6 mmol/L (3.4-5.1); Sodium 142 mmol/L (137-145); Total Protein 6.2 g/dL (6.3-8.2)
[2021-08-02 06:01] LABS: Hemoglobin A1C% w Est Avg Glu 13.7 % (4.0-6.0)
--- NOTE | 2021-08-02 09:50 | PM.PN.EICU ---
Subjective Subjective :: This patient was seen via real time interactive two-way audiovisual telecommunication. Current Medications Current Medications Medications: Home Medications duloxetine 40 mg capsule,delayed release 40 mg PO DAILY 08/01/21 [History Confirmed 08/01/21] insulin aspart U-100 100 unit/mL subcutaneous cartridge 1 sliding scale dose SUBCUT USEASDIRECTD 08/01/21 [History Confirmed 08/01/21] metformin 500 mg tablet 1,000 mg PO BID 08/01/21 [History Confirmed 08/01/21] minocycline 100 mg capsule 100 mg PO DAILY 08/01/21 [History Confirmed 08/01/21] norgestimate-ethinyl estradiol 0.18 mg/0.215mg/0.25mg-35 mcg(28)tablet (Tri-Estarylla) 1 tab PO DAILY 08/01/21 [History Confirmed 08/01/21] ondansetron 8 mg disintegrating tablet 8 mg PO Q8H PRN 08/01/21 [History Confirmed 08/01/21] phentermine 37.5 mg tablet 18.75 mg PO BID 08/01/21 [History Confirmed 08/01/21] Visit Medications (administered) Generic Name Dose Route Start Last Admin Trade Name Freq PRN Reason Stop Dose Admin Acetaminophen 650 mg 08/01/21 20:34 08/01/21 20:52 Acetaminophen 650 Mg Supp [place] 650 mg Q6HR PRN Administration Fever/Mild Pain (1-3) INSULIN DRIP PREMIX 100 unit in 100 mls @ 6 mls/hr 08/01/21 14:45 08/02/21 08:37 Myxredlin Drip Premix IV 3.1 mls/hr TITRATE WARREN 3.1 mls/hr Titration Protocol Dextrose/Sodium Chloride 1,000 mls @ 94 mls/hr 08/01/21 19:29 08/02/21 08:38 Dextrose 5%-0.45% Ns IV 94 mls/hr TITRATE PRN Administration Blood Sugar - Low Protocol Dextrose 1,000 mls @ 62.5 mls/hr 08/02/21 00:45 08/02/21 02:27 D10w IV 0 mls/hr CONT WARREN Infusion Objective Labs Result Diagrams: 08/02/21 05:07 08/02/21 05:07 Labs: Laboratory Results - last 24 hr 08/01/21 08/01/21 08/01/21 13:44 13:44 13:44 WBC 22.2 H RBC 4.92 Hgb 12.5 Hct 40.3 MCV 82.0 MCH 25.3 L MCHC 30.9 RDW 15.2 H Plt Count 507 H Neut % (Auto) 86.4 H Lymph % (Auto) 10.1 L [place] % (Auto) 3.4 Eos % (Auto) 0.0 L Baso % (Auto) 0.1 Neut # (Auto) 05144 H Lymph # (Auto) 2200 [place] # (Auto) 800 Eos # (Auto) 0 Baso # (Auto) 0 VBG pH VBG pCO2 VBG pO2 VBG HCO3 VBG Total CO2 VBG O2 Saturation VBG Base Excess Sodium 138 Potassium 4.9 Chloride 106 Carbon Dioxide 10 L BUN 22 H Creatinine 0.84 Estimated GFR > 60.0 BUN/Creatinine Ratio 26.2 H Glucose 357 H Hemoglobin A1c Lactate 2.1 Calcium 9.7 Magnesium Total Bilirubin 0.5 AST 51 H ALT 32 Alkaline Phosphatase 107 Total Protein 8.3 H Albumin 5.0 Globulin 3.3 Albumin/Globulin Ratio 1.5 Procalcitonin 4.82 H Serum , Qual Urine Color Urine Appearance Urine pH Ur Specific [place] Urine Protein Urine Glucose (UA) Urine Ketones Urine Occult Blood Urine Nitrate Urine Bilirubin Urine Urobilinogen Ur Leukocyte Esterase Urine RBC Urine WBC Ur Squamous Epith Cells Urine Bacteria Urine Mucus Ur Culture Indicated? Nasal Screen MRSA (PCR) U Opiates 300ng/mL cut Ur Oxycodone Screen Urine Methadone Screen Ur Barbiturates Screen U Tricyclic Antidepress Ur Phencyclidine Scrn Ur Amphetamines Screen U Methamphetamines Scrn Ur MDMA Scrn (Ecstasy) U Benzodiazepines Scrn Urine Cocaine Screen U Marijuana (THC) Screen Ketones 7.00 H SARS-CoV-2 (PCR) 08/01/21 08/01/21 08/01/21 13:44 14:16 15:30 WBC RBC Hgb Hct MCV MCH MCHC RDW Plt Count Neut % (Auto) Lymph % (Auto) [place] % (Auto) Eos % (Auto) Baso % (Auto) Neut # (Auto) Lymph # (Auto) [place] # (Auto) Eos # (Auto) Baso # (Auto) VBG pH 7.20 L* VBG pCO2 32.5 L VBG pO2 42 VBG HCO3 13 L VBG Total CO2 14 L VBG O2 Saturation 67 L VBG Base Excess -15.0 L Sodium Potassium Chloride Carbon Dioxide BUN Creatinine Estimated GFR BUN/Creatinine Ratio Glucose Hemoglobin A1c Lactate Calcium Magnesium Total Bilirubin AST ALT Alkaline Phosphatase Total Protein Albumin Globulin Albumin/Globulin Ratio Procalcitonin Serum , Qual Negative Urine Color Urine Appearance Urine pH Ur Specific [place] Urine Protein Urine Glucose (UA) Urine Ketones Urine Occult Blood Urine Nitrate Urine Bilirubin Urine Urobilinogen Ur Leukocyte Esterase Urine RBC Urine WBC Ur Squamous Epith Cells Urine Bacteria Urine Mucus Ur Culture Indicated? Nasal Screen MRSA (PCR) U Opiates 300ng/mL cut Ur Oxycodone Screen Urine Methadone Screen Ur Barbiturates Screen U Tricyclic Antidepress Ur Phencyclidine Scrn Ur Amphetamines Screen U Methamphetamines Scrn Ur MDMA Scrn (Ecstasy) U Benzodiazepines Scrn Urine Cocaine Screen U Marijuana (THC) Screen Ketones SARS-CoV-2 (PCR) Negative 08/01/21 08/01/21 08/01/21 16:25 18:08 18:20 WBC RBC Hgb Hct MCV MCH MCHC RDW Plt Count Neut % (Auto) Lymph % (Auto) [place] % (Auto) Eos % (Auto) Baso % (Auto) Neut # (Auto) Lymph # (Auto) [place] # (Auto) Eos # (Auto) Baso # (Auto) VBG pH VBG pCO2 VBG pO2 VBG HCO3 VBG Total CO2 VBG O2 Saturation VBG Base Excess Sodium 142 Potassium 4.3 Chloride 113 H Carbon Dioxide 9 L* BUN 20 H Creatinine 0.79 Estimated GFR > 60.0 BUN/Creatinine Ratio 25.3 H Glucose 328 H Hemoglobin A1c Lactate 1.9 Calcium 8.7 Magnesium Total Bilirubin AST ALT Alkaline Phosphatase Total Protein Albumin Globulin Albumin/Globulin Ratio Procalcitonin Serum , Qual Urine Color Yellow Urine Appearance Clear Urine pH 5.0 Ur Specific [place] 1.025 Urine Protein Trace H Urine Glucose (UA) 2+ H Urine Ketones 3+ H Urine Occult Blood Trace-lysed Urine Nitrate Negative Urine Bilirubin Negative Urine Urobilinogen 0.2 Ur Leukocyte Esterase Negative Urine RBC 0-1/hpf Urine WBC 0-1/hpf Ur Squamous Epith Cells 5-10 /hpf H Urine Bacteria Occasional (0-1) Urine Mucus 1+ H Ur Culture Indicated? Cult not indicated Nasal Screen MRSA (PCR) U Opiates 300ng/mL cut Ur Oxycodone Screen Urine Methadone Screen Ur Barbiturates Screen U Tricyclic Antidepress Ur Phencyclidine Scrn Ur Amphetamines Screen U Methamphetamines Scrn Ur MDMA Scrn (Ecstasy) U Benzodiazepines Scrn Urine Cocaine Screen U Marijuana (THC) Screen Ketones SARS-CoV-2 (PCR) 08/01/21 08/01/21 08/01/21 18:20 18:32 20:51 WBC RBC Hgb Hct MCV MCH MCHC RDW Plt Count Neut % (Auto) Lymph % (Auto) [place] % (Auto) Eos % (Auto) Baso % (Auto) Neut # (Auto) Lymph # (Auto) [place] # (Auto) Eos # (Auto) Baso # (Auto) VBG pH VBG pCO2 VBG pO2 VBG HCO3 VBG Total CO2 VBG O2 Saturation VBG Base Excess Sodium 141 Potassium 4.1 Chloride 117 H Carbon Dioxide 18 L BUN 19 H Creatinine 0.58 Estimated GFR > 60.0 BUN/Creatinine Ratio 32.8 H Glucose 195 H D Hemoglobin A1c Lactate Calcium 8.3 L Magnesium Total Bilirubin AST ALT Alkaline Phosphatase Total Protein Albumin Globulin Albumin/Globulin Ratio Procalcitonin Serum , Qual Urine Color Urine Appearance Urine pH Ur Specific [place] Urine Protein Urine Glucose (UA) Urine Ketones Urine Occult Blood Urine Nitrate Urine Bilirubin Urine Urobilinogen Ur Leukocyte Esterase Urine RBC Urine WBC Ur Squamous Epith Cells Urine Bacteria Urine Mucus Ur Culture Indicated? Nasal Screen MRSA (PCR) Negative for mrsa U Opiates 300ng/mL cut Negative Ur Oxycodone Screen Negative Urine Methadone Screen Negative Ur Barbiturates Screen Negative U Tricyclic Antidepress Negative Ur Phencyclidine Scrn Negative Ur Amphetamines Screen Negative U Methamphetamines Scrn Negative Ur MDMA Scrn (Ecstasy) Negative U Benzodiazepines Scrn Negative Urine Cocaine Screen Negative U Marijuana (THC) Screen Negative Ketones SARS-CoV-2 (PCR) 08/02/21 08/02/21 08/02/21 05:07 05:07 05:07 WBC 21.1 H RBC 4.10 Hgb 10.6 L Hct 33.0 L MCV 80.5 MCH 25.7 L MCHC 32.0 RDW 14.8 Plt Count 414 H Neut % (Auto) 83.7 H Lymph % (Auto) 9.3 L [place] % (Auto) 7.0 Eos % (Auto) 0.0 L Baso % (Auto) 0.0 Neut # (Auto) 79346 H Lymph # (Auto) 2000 [place] # (Auto) 1500 H Eos # (Auto) 0 Baso # (Auto) 0 VBG pH VBG pCO2 VBG pO2 VBG HCO3 VBG Total CO2 VBG O2 Saturation VBG Base Excess Sodium 142 Potassium 3.6 Chloride 115 H Carbon Dioxide 18 L BUN 17 Creatinine 0.58 Estimated GFR > 60.0 BUN/Creatinine Ratio 29.3 H Glucose 118 H Hemoglobin A1c 13.7 H Lactate Calcium 8.4 Magnesium 2.1 Total Bilirubin 0.4 AST 31 ALT 24 Alkaline Phosphatase 65 Total Protein 6.2 L Albumin 3.5 Globulin 2.7 Albumin/Globulin Ratio 1.3 Procalcitonin Serum , Qual Urine Color Urine Appearance Urine pH Ur Specific [place] Urine Protein Urine Glucose (UA) Urine Ketones Urine Occult Blood Urine Nitrate Urine Bilirubin Urine Urobilinogen Ur Leukocyte Esterase Urine RBC Urine WBC Ur Squamous Epith Cells Urine Bacteria Urine Mucus Ur Culture Indicated? Nasal Screen MRSA (PCR) U Opiates 300ng/mL cut Ur Oxycodone Screen Urine Methadone Screen Ur Barbiturates Screen U Tricyclic Antidepress Ur Phencyclidine Scrn Ur Amphetamines Screen U Methamphetamines Scrn Ur MDMA Scrn (Ecstasy) U Benzodiazepines Scrn Urine Cocaine Screen U Marijuana (THC) Screen Ketones SARS-CoV-2 (PCR) Exam Vital Signs (past 8 hours): - 08/02/21 02:00 08/02/21 03:00 08/02/21 04:00 Temperature 98.2 F 96.9 F L Pulse Rate 109 H 110 H 117 H Respiratory Rate 16 14 15 Blood Pressure 114/62 112/56 L 111/55 L Pulse Oximetry 100 100 100 08/02/21 05:00 08/02/21 07:00 08/02/21 08:00 Temperature 98.3 F 98.5 F Pulse Rate 114 H 108 H 110 H Respiratory Rate 13 18 18 Blood Pressure 112/55 L 125/68 115/63 Pulse Oximetry 100 99 100 08/02/21 09:00 Temperature Pulse Rate 115 H Respiratory Rate 17 Blood Pressure 114/57 L Pulse Oximetry 99 Oxygen Delivery Method Room Air Oxygen Flow Rate 0 Assessment & Plan Assessment & Plan narrative: patient see and examined with nursing staff and bedside provider chart/labs/imaging reviewed afebrile, tachycardia bp stable plan -continue dka protocol per primary team -suggest bolus 1-2L of LR for dehydration -re-call tele ICU prn Time Spent With Patient Critical Care time: I spent a total of [] minutes of critical care time on this patient's care today; this time is exclusive of procedural time.
[2021-08-02] MEDS: ENOXAPARIN 40 MG/0.4 ML SYRINGE SUBCUT (09:58)
[2021-08-02] MEDS: POTASSIUM CHLORIDE IN WATER 10 MEQ/100 ML PIGGYBACK 100 MEQ IV ×8 (09:58→21:51)
[2021-08-02] MEDS: DULOXETINE 20 MG CAPSULE 40 MG PO (09:58)
[2021-08-02] MEDS: ONDANSETRON 4 MG/2 ML INJ IV ×3 (11:17→21:48)
[2021-08-02] MEDS: LACTATED RINGERS 1,000 ML 500 ML IV (11:17)
[2021-08-02] MEDS: LACTATED RINGERS 1,000 ML 350 ML IV (14:41)
[2021-08-02 15:38] LABS: BUN Creatinine Ratio 26.9 (6-22); Blood Urea Nitrogen 14 mg/dL (7-17); Calcium 8.6 mg/dL (8.4-10.2); Carbon Dioxide 21 mmol/L (22-32); Chloride 111 mmol/L (98-107); Estimated Glomerular Filt Rate > 60.0 mL/min (>60); Glucose 75 mg/dL (70-100); HEMOLYSIS < 15 (0-50); Potassium 3.8 mmol/L (3.4-5.1); Sodium 139 mmol/L (137-145)
[2021-08-02] MEDS: BENZOCAINE/MENTHOL 1 LOZ PKT 1 EACH PO (16:04)
--- NOTE | 2021-08-02 16:40 | CM.DANOTE ---
DCP/Assessment: Reviewed chart. Patient is a 26yr old female admitted to [facility] with DKA. PCP not listed. Primary payor is 1)Medicaid (out of state[place] Spoke with RN re: update. RN reports that patient continues to be on insulin drip. Patient visiting family in [place] originally from [place]. At this time d/c needs unknown. CM team to continue to follow. P: Home when stable. CM team to see tomorrow. KJS Discharge Planning/Care Management CM Discharge Assessment Start: 08/02/21 16:35 Freq: Status: Active Protocol: Document 08/02/21 16:35 KJS (Rec: 08/02/21 16:39 KJS [id number]) Discharge Planning Assessment Assigned Arch Pad Cementer FERNANDO Stoddard Contact Information Axel Olivares (family) ph# [phone] Advance Directives? No History Provided By Medical Record Prior Living Arrangements Apartment/Condo Independent with ADL's Yes Is patient alert and oriented? Yes Caregiver for Another No Barriers to Discharge No Discharge Plan Home Transportation Arrangement Family to provide transport. Referrals Initiated Other Additional Comment D/C planning needs unclear at this time. CM team to continue to follow. Review Status In Process Next Review Type Continued Stay Review
[2021-08-02] MEDS: INSULIN GLARGINE 100 UNIT/ML 3ML PEN 10 UNIT SUBCUT (17:04)
[2021-08-02] MEDS: METOCLOPRAMIDE 10 MG/2 ML INJ IV (17:05)
[2021-08-02] MEDS: INSULIN DRIP PREMIX 100 UNIT/100 ML PLAST..BAG 9.4 UNIT IV (17:54)
[2021-08-02] MEDS: LACTATED RINGERS 1,000 ML 150 ML IV (18:16)
--- NOTE | 2021-08-02 18:36 | P.PN_ITS ---
Subjective Subjective Interval history: The patient denies any acute complaints this morning. She reports that her appetite is picking back up. Exam Vital Signs (past 8 hours): - 08/02/21 11:35 08/02/21 16:30 Temperature 98.7 F 99.2 F Pulse Rate 110 H Respiratory Rate 18 26 H Blood Pressure 147/95 H 126/58 L Pulse Oximetry 100 100 Oxygen Delivery Method Room Air Oxygen Flow Rate 0 Const Other: Laying in bed comfortably upon my entering the room, in no apparent acute distress. Eyes Other: No scleral icterus appreciated. Resp Other: Clear to auscultation bilaterally. Cardio Other: Tachycardic rate and regular rhythm. S1 and S2 heart sounds heard with no extra heart sounds or murmurs appreciated. No peripheral edema noted. GI Other: Soft, non-distended, non-tender. Bowel sounds present. Extrem Other: Palpable dorsalis pedis pulses bilaterally. Objective Labs Result Diagrams: 08/02/21 05:07 08/02/21 14:45 Labs: Laboratory Results - last 24 hr 08/01/21 08/01/21 08/01/21 18:08 18:20 18:20 WBC RBC Hgb Hct MCV MCH MCHC RDW Plt Count Neut % (Auto) Lymph % (Auto) [place] % (Auto) Eos % (Auto) Baso % (Auto) Neut # (Auto) Lymph # (Auto) [place] # (Auto) Eos # (Auto) Baso # (Auto) Sodium 142 Potassium 4.3 Chloride 113 H Carbon Dioxide 9 L* BUN 20 H Creatinine 0.79 Estimated GFR > 60.0 BUN/Creatinine Ratio 25.3 H Glucose 328 H Hemoglobin A1c Calcium 8.7 Magnesium Total Bilirubin AST ALT Alkaline Phosphatase Total Protein Albumin Globulin Albumin/Globulin Ratio Urine Color Yellow Urine Appearance Clear Urine pH 5.0 Ur Specific [place] 1.025 Urine Protein Trace H Urine Glucose (UA) 2+ H Urine Ketones 3+ H Urine Occult Blood Trace-lysed Urine Nitrate Negative Urine Bilirubin Negative Urine Urobilinogen 0.2 Ur Leukocyte Esterase Negative Urine RBC 0-1/hpf Urine WBC 0-1/hpf Ur Squamous Epith Cells 5-10 /hpf H Urine Bacteria Occasional (0-1) Urine Mucus 1+ H Ur Culture Indicated? Cult not indicated Nasal Screen MRSA (PCR) U Opiates 300ng/mL cut Negative Ur Oxycodone Screen Negative Urine Methadone Screen Negative Ur Barbiturates Screen Negative U Tricyclic Antidepress Negative Ur Phencyclidine Scrn Negative Ur Amphetamines Screen Negative U Methamphetamines Scrn Negative Ur MDMA Scrn (Ecstasy) Negative U Benzodiazepines Scrn Negative Urine Cocaine Screen Negative U Marijuana (THC) Screen Negative 08/01/21 08/01/21 08/02/21 18:32 20:51 05:07 WBC 21.1 H RBC 4.10 Hgb 10.6 L Hct 33.0 L MCV 80.5 MCH 25.7 L MCHC 32.0 RDW 14.8 Plt Count 414 H Neut % (Auto) 83.7 H Lymph % (Auto) 9.3 L [place] % (Auto) 7.0 Eos % (Auto) 0.0 L Baso % (Auto) 0.0 Neut # (Auto) 07047 H Lymph # (Auto) 2000 [place] # (Auto) 1500 H Eos # (Auto) 0 Baso # (Auto) 0 Sodium 141 Potassium 4.1 Chloride 117 H Carbon Dioxide 18 L BUN 19 H Creatinine 0.58 Estimated GFR > 60.0 BUN/Creatinine Ratio 32.8 H Glucose 195 H D Hemoglobin A1c Calcium 8.3 L Magnesium Total Bilirubin AST ALT Alkaline Phosphatase Total Protein Albumin Globulin Albumin/Globulin Ratio Urine Color Urine Appearance Urine pH Ur Specific [place] Urine Protein Urine Glucose (UA) Urine Ketones Urine Occult Blood Urine Nitrate Urine Bilirubin Urine Urobilinogen Ur Leukocyte Esterase Urine RBC Urine WBC Ur Squamous Epith Cells Urine Bacteria Urine Mucus Ur Culture Indicated? Nasal Screen MRSA (PCR) Negative for mrsa U Opiates 300ng/mL cut Ur Oxycodone Screen Urine Methadone Screen Ur Barbiturates Screen U Tricyclic Antidepress Ur Phencyclidine Scrn Ur Amphetamines Screen U Methamphetamines Scrn Ur MDMA Scrn (Ecstasy) U Benzodiazepines Scrn Urine Cocaine Screen U Marijuana (THC) Screen 08/02/21 08/02/21 08/02/21 05:07 05:07 14:45 WBC RBC Hgb Hct MCV MCH MCHC RDW Plt Count Neut % (Auto) Lymph % (Auto) [place] % (Auto) Eos % (Auto) Baso % (Auto) Neut # (Auto) Lymph # (Auto) [place] # (Auto) Eos # (Auto) Baso # (Auto) Sodium 142 139 Potassium 3.6 3.8 Chloride 115 H 111 H Carbon Dioxide 18 L 21 L BUN 17 14 Creatinine 0.58 0.52 Estimated GFR > 60.0 > 60.0 BUN/Creatinine Ratio 29.3 H 26.9 H Glucose 118 H 75 Hemoglobin A1c 13.7 H Calcium 8.4 8.6 Magnesium 2.1 Total Bilirubin 0.4 AST 31 ALT 24 Alkaline Phosphatase 65 Total Protein 6.2 L Albumin 3.5 Globulin 2.7 Albumin/Globulin Ratio 1.3 Urine Color Urine Appearance Urine pH Ur Specific [place] Urine Protein Urine Glucose (UA) Urine Ketones Urine Occult Blood Urine Nitrate Urine Bilirubin Urine Urobilinogen Ur Leukocyte Esterase Urine RBC Urine WBC Ur Squamous Epith Cells Urine Bacteria Urine Mucus Ur Culture Indicated? Nasal Screen MRSA (PCR) U Opiates 300ng/mL cut Ur Oxycodone Screen Urine Methadone Screen Ur Barbiturates Screen U Tricyclic Antidepress Ur Phencyclidine Scrn Ur Amphetamines Screen U Methamphetamines Scrn Ur MDMA Scrn (Ecstasy) U Benzodiazepines Scrn Urine Cocaine Screen U Marijuana (THC) Screen PFSH Medical History Gastroparesis Retinopathy Surgical History No pertinent past surgical history Family History Family/Other No problems noted. Father Hypertension Social History Smoking Status: Never smoker alcohol intake: current Assessment & Plan Assessment & Plan narrative: Assessment: 1. DKA, likely secondary to malfunctioning insulin pump 2. Type I DM 3. Diabetic neuropathy 4. Hx of being on control Plan: 1. Glucose has improved with insulin drip, along with closure of anion gap. Will overlap insulin drip with subcutaneous insulin today, along with encouraging PO intake for patient. IV volume resuscitated. 2. A1c 14%. Patient has injectable insulin, per her report. Therefore, if insulin pump malfunctioning, patient reports she can inject insulin on discharge, until she returns home to [place], [place] this Monday and follows-up with her manufacturing lead next week. 3. Will continue home duloxetine 40 mg daily. 4. patient is on norgestimate-ethinyl estradiol as outpatient. VTE prophylaxis: Lovenox 40 mg daily Disposition: Home Time Spent With Patient Critical Care time: I spent a total of [] minutes of critical care time on this patient's care today; this time is exclusive of procedural time.
[2021-08-02 19:08] LABS: BUN Creatinine Ratio 19.6 (6-22); Blood Urea Nitrogen 11 mg/dL (7-17); Calcium 8.5 mg/dL (8.4-10.2); Carbon Dioxide 12 mmol/L (22-32); Chloride 107 mmol/L (98-107); Estimated Glomerular Filt Rate > 60.0 mL/min (>60); Glucose 304 mg/dL (70-100); HEMOLYSIS < 15 (0-50); Potassium 3.7 mmol/L (3.4-5.1); Sodium 136 mmol/L (137-145)
[2021-08-02 19:15] LABS: PCO2 VBG 23.1 mmHg (45-50); PO2 VBG 55 mmHg (35-45); pH VBG 7.32 (7.33-7.43)
[2021-08-02 19:16] LABS: HCO3 VBG 12 mmol/L (23-28); Oxygen Saturation VBG 87 % (70-75); Total CO2 VBG 13 mmol/L (24-29)
--- NOTE | 2021-08-02 19:23 | PC.NURSE ---
pt continues to intermittently nauseated - with actual emesis this am, or just unable to take po- we attempted soup/ jello /broth/ popsicle/juice to no avail- anion actually closed earlier today and administered sq lantus per md order but her inablility to tolerate intake required going back into dka with latest gap of 17 - reinitiated dka protocol orders - next bmp due 2244, pt voided just once over 12h shift in [facility]. very lethargic
--- NOTE | 2021-08-02 20:12 | PM.ICURNDS ---
- :: This patient was seen via real time interactive two-way audiovisual telecommunication. Note: Multidisciplinary round completed. Chart and labs reviewed. Patient admitted for DKA which she was transitioned to lantus but restarted back on insulin infusion due to worsening HCO3 and hyperglycemia. PCT notable for 4.2, suggestive of possible bacterial infection. Will obtain blood culture and started ceftriaxone/flagyl. Cont insulin infusion per DKA protocol. Case d/w RN and patient at bedside.
[2021-08-02 20:54] LABS: Magnesium 1.5 mg/dL (1.6-2.3)
[2021-08-02] MEDS: cefTRIAXone 1,000 MG in SODIUM CHLORIDE 0.9% 100 ML 200 ML IV (21:45)
[2021-08-02] MEDS: metroNIDAZOLE 500 MG/100 ML PIGGYBACK 100 MG IV (21:47)
[2021-08-02 23:00] LABS: BUN Creatinine Ratio 16.3 (6-22); Blood Urea Nitrogen 8 mg/dL (7-17); Calcium 8.1 mg/dL (8.4-10.2); Carbon Dioxide 21 mmol/L (22-32); Chloride 109 mmol/L (98-107); Estimated Glomerular Filt Rate > 60.0 mL/min (>60); Glucose 138 mg/dL (70-100); HEMOLYSIS < 15 (0-50); Potassium 3.9 mmol/L (3.4-5.1); Sodium 136 mmol/L (137-145)
[2021-08-03] MEDS: POTASSIUM CHLORIDE IN WATER 10 MEQ/100 ML PIGGYBACK 100 MEQ IV ×4 (00:58→10:52)
[2021-08-03] MEDS: LACTATED RINGERS 1,000 ML 150 ML IV (01:00)
[2021-08-03] MEDS: MAGNESIUM SULFATE 2 GM/50 ML PIGGYBACK IV (02:17)
[2021-08-03] MEDS: ONDANSETRON 4 MG/2 ML INJ IV ×2 (02:20→21:10)
[2021-08-03] MEDS: METOCLOPRAMIDE 10 MG/2 ML INJ IV ×2 (02:41→14:11)
[2021-08-03 03:00] VITALS: BP 138/90; PULSE 104; RESP 14; TEMP 36.9; O2SAT 100
[2021-08-03 03:35] LABS: Appearance Urine UA Slightly Cloudy; Bilirubin Urine UA NEGATIVE (NEGATIVE); Color Urine UA YELLOW; Glucose Urine UA 1+ g/dL (Negative); Ketones Urine UA 3+ (NEGATIVE); Leukocyte Esterase Urine UA NEGATIVE (NEGATIVE); Nitrite Urine UA NEGATIVE (Negative); Occult Blood Urine UA 1+ (Negative); Protein Urine UA NEGATIVE (Negative); RBC Urine 0-1/HPF (0-5/HPF); Specific Gravity Urine UA 1.015 (1.000-1.035); Urobilinogen Urine UA 0.2 E.U./dL (0.2); WBC Urine 1-5/HPF (0-5/HPF)
[2021-08-03 03:36] LABS: Bacteria Urine Many (>30); Culture Indicated Urine Specimen Cultured; Mucus Urine 1+ (Negative); Squamous Epithelial Cell Urine 1-5 /HPF (0-5/HPF)
[2021-08-03] MEDS: metroNIDAZOLE 500 MG/100 ML PIGGYBACK 100 MG IV (03:58)
[2021-08-03 06:56] LABS: Add Manual Diff / Slide Review NO; Alanine Aminotransferase 23 IU/L (<35); Albumin 3.2 g/dL (3.5-5.0); Albumin Globulin Ratio 1.3 (1.0-2.8); Alkaline Phosphatase 71 U/L (38-126); Aspartate Aminotransferase 32 IU/L (14-36); BUN Creatinine Ratio 10.2 (6-22); Basophils Absolute Auto 0 /uL (0-100); Basophils Percent Auto 0.1 % (0-2); Bilirubin Total 0.4 mg/dL (0.2-1.3); Blood Urea Nitrogen 5 mg/dL (7-17); Calcium 8.3 mg/dL (8.4-10.2); Carbon Dioxide 22 mmol/L (22-32); Chloride 107 mmol/L (98-107); Eosinophils Absolute Auto 0 /uL (0-450); Estimated Glomerular Filt Rate > 60.0 mL/min (>60); Globulin 2.5 g/dL (1.7-4.1); Glucose 130 mg/dL (70-100); HEMOLYSIS < 15 (0-50); Hematocrit 31.6 % (36-46); Hemoglobin 10.2 g/dL (12.0-16.0); Lymphocytes Absolute Auto 1500 /uL (1100-4500); Lymphocytes Percent Auto 8.7 % (25-40); Magnesium 2.3 mg/dL (1.6-2.3); Mean Corpuscular HGB Conc 32.3 % (30-36); Mean Corpuscular Hemoglobin 25.4 PG (26-34); Mean Corpuscular Volume 78.8 fL (80-100); Monocytes Absolute Auto 1100 /uL (0-900); Monocytes Percent Auto 6.5 % (3-14); Neutrophils Absolute Auto 14300 /uL (1500-7000); Neutrophils Percent Auto 84.7 % (50-75); Platelet Count 342 X10^3/uL (150-400); Red Blood Cell Count 4.01 X10^6/uL (4.0-5.2); Sodium 136 mmol/L (137-145); Total Protein 5.7 g/dL (6.3-8.2); White Blood Cell Count 16.9 X10^3/uL (4.5-11.0)
[2021-08-03 08:00] VITALS: BP 146/88; PULSE 102; RESP 19; TEMP 36.6; O2SAT 98
[2021-08-03] MEDS: ENOXAPARIN 40 MG/0.4 ML SYRINGE SUBCUT (10:50)
[2021-08-03 12:00] VITALS: BP 141/84; PULSE 106; RESP 18; TEMP 36.4; O2SAT 98
[2021-08-03] MEDS: BENZOCAINE/MENTHOL 1 LOZ PKT 1 EACH PO (13:29)
[2021-08-03] MEDS: INSULIN GLARGINE 100 UNIT/ML 3ML PEN 16 UNIT SUBCUT (13:29)
[2021-08-03 15:24] LABS: Osmolality, Serum 322 mOsmol/kg (275-295)
--- NOTE | 2021-08-03 16:19 | CM.DPC ---
DCP/continued: Spoke with provider in AM rounds. Patient anticipated to d/c home tomorrow without any d/c planning needs. P: Home when stable. CM team to follow for needs that may arise. LISA
[2021-08-03 16:30] VITALS: BP 139/91; PULSE 95; RESP 20; TEMP 36.7; O2SAT 100
[2021-08-03] MEDS: PANTOPRAZOLE DR 40 MG TABLET PO (17:00)
--- NOTE | 2021-08-03 18:40 | PM.PN.1 ---
Subjective Subjective Interval history: Patient reports some n/v that she relates to her gastroparesis. She also endorses a burning sore throat that she attributes to n/v. She is able to keep water down without problems, per patient. She admits to taking phentermine at home for weight loss over the past couple of months. Exam Vital Signs (past 8 hours): - 08/03/21 12:00 08/03/21 16:30 Temperature 97.6 F 98.0 F Pulse Rate 106 H 95 H Respiratory Rate 18 20 Blood Pressure 141/84 H 139/91 H Pulse Oximetry 98 100 Oxygen Delivery Method Room Air Oxygen Flow Rate 0 Narrative Exam Narrative: Const Other: Laying in bed comfortably upon my entering the room, in no apparent acute distress. Eyes Other: No scleral icterus appreciated. Resp Other: Clear to auscultation bilaterally. Cardio Other: Tachycardic rate and regular rhythm. S1 and S2 heart sounds heard with no extra heart sounds or murmurs appreciated. No peripheral edema noted. GI Other: Soft, non-distended, non-tender. Bowel sounds present. Extrem Other: Palpable dorsalis pedis pulses bilaterally. Objective Labs Result Diagrams: 08/03/21 04:28 08/03/21 04:28 Labs: Laboratory Results - last 24 hr 08/01/21 08/02/21 08/02/21 13:44 18:37 18:37 WBC RBC Hgb Hct MCV MCH MCHC RDW Plt Count Neut % (Auto) Lymph % (Auto) [place] % (Auto) Eos % (Auto) Baso % (Auto) Neut # (Auto) Lymph # (Auto) [place] # (Auto) Eos # (Auto) Baso # (Auto) VBG pH 7.32 L VBG pCO2 23.1 L VBG pO2 55 H VBG HCO3 12 L VBG Total CO2 13 L VBG O2 Saturation 87 H VBG Base Excess -14.0 L Sodium 136 L Potassium 3.7 Chloride 107 Carbon Dioxide 12 L BUN 11 Creatinine 0.56 Estimated GFR > 60.0 BUN/Creatinine Ratio 19.6 Glucose 304 H D Serum Osmolality 322 H Calcium 8.5 Magnesium Total Bilirubin AST ALT Alkaline Phosphatase Total Protein Albumin Globulin Albumin/Globulin Ratio Urine Color Urine Appearance Urine pH Ur Specific [place] Urine Protein Urine Glucose (UA) Urine Ketones Urine Occult Blood Urine Nitrate Urine Bilirubin Urine Urobilinogen Ur Leukocyte Esterase Urine RBC Urine WBC Ur Squamous Epith Cells Urine Bacteria Urine Mucus Ur Culture Indicated? 08/02/21 08/02/21 08/02/21 18:37 20:50 22:38 WBC RBC Hgb Hct MCV MCH MCHC RDW Plt Count Neut % (Auto) Lymph % (Auto) [place] % (Auto) Eos % (Auto) Baso % (Auto) Neut # (Auto) Lymph # (Auto) [place] # (Auto) Eos # (Auto) Baso # (Auto) VBG pH VBG pCO2 VBG pO2 VBG HCO3 VBG Total CO2 VBG O2 Saturation VBG Base Excess Sodium 136 L Potassium 3.9 Chloride 109 H Carbon Dioxide 21 L BUN 8 Creatinine 0.49 L Estimated GFR > 60.0 BUN/Creatinine Ratio 16.3 Glucose 138 H D Serum Osmolality Calcium 8.1 L Magnesium 1.5 L Total Bilirubin AST ALT Alkaline Phosphatase Total Protein Albumin Globulin Albumin/Globulin Ratio Urine Color Yellow Urine Appearance Slightly cloudy Urine pH 5.0 Ur Specific [place] 1.015 Urine Protein Negative Urine Glucose (UA) 1+ H Urine Ketones 3+ H Urine Occult Blood 1+ H Urine Nitrate Negative Urine Bilirubin Negative Urine Urobilinogen 0.2 Ur Leukocyte Esterase Negative Urine RBC 0-1/hpf Urine WBC 1-5/hpf Ur Squamous Epith Cells 1-5 /hpf Urine Bacteria Many (>30) H Urine Mucus 1+ H Ur Culture Indicated? Specimen cultured 08/03/21 08/03/21 04:28 04:28 WBC 16.9 H RBC 4.01 Hgb 10.2 L Hct 31.6 L MCV 78.8 L MCH 25.4 L MCHC 32.3 RDW 15.0 H Plt Count 342 Neut % (Auto) 84.7 H Lymph % (Auto) 8.7 L [place] % (Auto) 6.5 Eos % (Auto) 0.0 L Baso % (Auto) 0.1 Neut # (Auto) 68117 H Lymph # (Auto) 1500 [place] # (Auto) 1100 H Eos # (Auto) 0 Baso # (Auto) 0 VBG pH VBG pCO2 VBG pO2 VBG HCO3 VBG Total CO2 VBG O2 Saturation VBG Base Excess Sodium 136 L Potassium 4.0 Chloride 107 Carbon Dioxide 22 BUN 5 L Creatinine 0.49 L Estimated GFR > 60.0 BUN/Creatinine Ratio 10.2 Glucose 130 H Serum Osmolality Calcium 8.3 L Magnesium 2.3 Total Bilirubin 0.4 AST 32 ALT 23 Alkaline Phosphatase 71 Total Protein 5.7 L Albumin 3.2 L Globulin 2.5 Albumin/Globulin Ratio 1.3 Urine Color Urine Appearance Urine pH Ur Specific [place] Urine Protein Urine Glucose (UA) Urine Ketones Urine Occult Blood Urine Nitrate Urine Bilirubin Urine Urobilinogen Ur Leukocyte Esterase Urine RBC Urine WBC Ur Squamous Epith Cells Urine Bacteria Urine Mucus Ur Culture Indicated? [facility] Medical History Gastroparesis Retinopathy Surgical History No pertinent past surgical history Family History Family/Other No problems noted. Father Hypertension Social History Smoking Status: Never smoker alcohol intake: current Assessment & Plan Assessment & Plan narrative: Assessment: 1. DKA, likely secondary to malfunctioning insulin pump 2. Type I DM3. Hx of gastroparesis 4. Diabetic neuropathy 5. Hx of being on control Plan: 1. Glucose has improved with insulin drip, along with closure of anion gap. Will overlap insulin drip with subcutaneous insulin 16 units, along with encouraging PO intake for patient. Encourage increased PO intake. 2. A1c 14%. Patient has injectable insulin, per her report. Therefore, if insulin pump malfunctioning, patient reports she can inject insulin on discharge, until she returns home to [place], [place] this Monday and follows-up with her online marketing specialist next week. 3. Patient receiving IV metoclopramide approximately 2 times per day with good effect. Will start PO PPI for acid reflux likely brought on by this problem. 4. Will continue home duloxetine 40 mg daily. 5. patient is on norgestimate-ethinyl estradiol as outpatient. VTE prophylaxis: Lovenox 40 mg daily Disposition: Home, once clinically stable Time Spent With Patient Critical Care time: I spent a total of [] minutes of critical care time on this patient's care today; this time is exclusive of procedural time.
[2021-08-03 20:40] VITALS: BP 138/89; PULSE 96; RESP 18; TEMP 37; O2SAT 100
[2021-08-04] MEDS: BENZOCAINE/MENTHOL 1 LOZ PKT 1 EACH PO (00:52)
[2021-08-04] MEDS: METOCLOPRAMIDE 10 MG/2 ML INJ IV ×2 (01:00→09:07)
[2021-08-04 02:00] VITALS: BP 144/92; PULSE 89; RESP 18; TEMP 36.8; O2SAT 100
[2021-08-04] MEDS: PANTOPRAZOLE DR 40 MG TABLET PO (06:40)
[2021-08-04] MEDS: ONDANSETRON 4 MG/2 ML INJ IV (06:43)
[2021-08-04 06:48] LABS: Add Manual Diff / Slide Review NO; Basophils Absolute Auto 0 /uL (0-100); Basophils Percent Auto 0.1 % (0-2); Eosinophils Absolute Auto 0 /uL (0-450); Eosinophils Percent Auto 0.1 % (2-4); Hematocrit 31.5 % (36-46); Hemoglobin 10.5 g/dL (12.0-16.0); Lymphocytes Absolute Auto 1500 /uL (1100-4500); Mean Corpuscular HGB Conc 33.2 % (30-36); Mean Corpuscular Hemoglobin 26.4 PG (26-34); Mean Corpuscular Volume 79.3 fL (80-100); Monocytes Absolute Auto 600 /uL (0-900); Monocytes Percent Auto 7.3 % (3-14); Neutrophils Absolute Auto 5700 /uL (1500-7000); Neutrophils Percent Auto 73.5 % (50-75); Platelet Count 291 X10^3/uL (150-400); Red Blood Cell Count 3.97 X10^6/uL (4.0-5.2); White Blood Cell Count 7.8 X10^3/uL (4.5-11.0)
[2021-08-04 06:54] LABS: Alanine Aminotransferase 25 IU/L (<35); Albumin 3.1 g/dL (3.5-5.0); Albumin Globulin Ratio 1.1 (1.0-2.8); Alkaline Phosphatase 71 U/L (38-126); Aspartate Aminotransferase 36 IU/L (14-36); BUN Creatinine Ratio 15.4 (6-22); Bilirubin Total 0.4 mg/dL (0.2-1.3); Blood Urea Nitrogen 8 mg/dL (7-17); Calcium 8.4 mg/dL (8.4-10.2); Carbon Dioxide 28 mmol/L (22-32); Chloride 101 mmol/L (98-107); Estimated Glomerular Filt Rate > 60.0 mL/min (>60); Globulin 2.7 g/dL (1.7-4.1); Glucose 252 mg/dL (70-100); HEMOLYSIS < 15 (0-50); Potassium 3.8 mmol/L (3.4-5.1); Sodium 136 mmol/L (137-145); Total Protein 5.8 g/dL (6.3-8.2)
[2021-08-04 09:04] VITALS: BP 151/99; PULSE 83; RESP 18; TEMP 36.1; O2SAT 99
[2021-08-04] MEDS: DULOXETINE 20 MG CAPSULE 40 MG PO (09:07)
[2021-08-04] MEDS: ENOXAPARIN 40 MG/0.4 ML SYRINGE SUBCUT (09:07)
--- NOTE | 2021-08-04 10:43 | DIET.PN1 ---
Addendum entered by Domi Gaspar 08/04/21 16:06: RD worked c pt to navigate patient menu for items which may be tolerated. Sending both entree and smoothie for dinner and breakfast in case one or the other not tolerated. Provided handout and education on gastroparesis with food lists containing items most and least likely to be tolerated. Pt reports having gastroparesis sx for a few months now, states still doses insulin via pump, however A1c >13. Addendum entered by Domi Gaspar 08/04/21 14:41: Pt consumed 2/3 ONS [place]frido slushie and tolerated well. Kitchen to send another as snack this afternoon. Original Note: Dietary Progress Note Assessment: 26y T1D admitted for DKA referred to nutrition for low body weight (BMI 22.9). Pt visiting area from [place], uses insulin pump which may be malfunctioning. When RD visited, pt lethargic, quiet, and nauseated. Pt unable to keep most POs down though diet advanced to CCD4 with POs ~25% secondary to complaints of gastroparesis. Pt ordered chicken noodle soup for lunch today. Pt not feeling up for conversation this morning and plans to attend endocrinology appointment next week in [place], has bolus insulin she can use until then. RD concerned for poor POs, offered to make pt ONS Wilfrido slushie as snack to test for tolerance in order to get meaningful protein in her body. This should not aggravate her gastroparesis as it is low fat and low fiber in liquid form. Pt is of average body weight, BMI, RD concerns regarding pt using phentermine for weight loss recently as pts A1c 13.7 c positive urine ketones. Ht: 165.1 cm Wt: 62.5 kg BMI: 22.9 UBW: Last BM: 08/03/21 (08/04/21 06:00) MNA: 9 [place] Score: 21 Diet: 08/03/21 Dinner Carbohydrate Consistent Diet Diet Modifications: Safety Tray needed?: No Carbohydrate level: Large (4 CHO) Bedtime snack: No Nutrition Percent Meal Consumed 25% 08/03/21 18:54 Percent Meal Consumed 25% 08/03/21 08:00 Percent Meal Consumed 0% 08/02/21 19:56 Labs: RBC 3.97 X10^6/uL (4.0-5.2) L 08/04/21 06:05 Hgb 10.5 g/dL (12.0-16.0) L 08/04/21 06:05 Hct 31.5 % (36-46) L 08/04/21 06:05 Creatinine 0.52 mg/dL (0.52-1.04) 08/04/21 06:05 Hemoglobin A1c 13.7 % (4.0-6.0) H 08/02/21 05:07 Lactate 1.9 mmol/L (0.7-2.1) 08/01/21 16:25 Nutrition Diagnosis: inadequate protein energy intake r/t prolonged DKA c nausea aeb pt admitted in DKA (pH of 7.198 on VBG, Anion gap of 22 with a bicarb of 10, ketones 7), pt insulin pump dependent c current A1c 13.7, pt reports gastroparesis, POs this hospital stay ~25% when not NPO. Interventions: 1. Trialing ONS [place] in slushie form as midday snack to test for tolerance providing 26% protein needs in low carb formula and in form that should not aggrevate her gastroparesis. EER: 1550kcals (25kcal/kg), 62g PRO (1g/kg) Monitoring/Evaluations: POs, ONS tolerance Electronically Signed by: Domi Gaspar 08/04/21 10:43 Clinical Dietitian [address] [address]
[2021-08-04] MEDS: INSULIN GLARGINE 100 UNIT/ML 3ML PEN 20 UNIT SUBCUT (11:33)
[2021-08-04 14:00] VITALS: BP 151/93; PULSE 88; RESP 18; TEMP 36.1; O2SAT 98
--- NOTE | 2021-08-04 14:13 | PM.PN.1 ---
Subjective Subjective Interval history: Patient endorses continued n/v. She states that the Reglan is not helping. She reports that IV zofran and IV dilaudid, when given together, typically help her sxs. She reports moving around more and that's helping, too. Somewhat keeping down PO intake. Father at bedside reports that he will be bringing home insulin pump today. Exam Vital Signs (past 8 hours): - 08/05/21 09:15 Temperature 98.1 F Pulse Rate 81 Respiratory Rate 16 Blood Pressure 145/94 H Pulse Oximetry 100 Oxygen Delivery Method Room Air Oxygen Flow Rate 0 Narrative Exam Narrative: Const Other: Laying in bed comfortably upon my entering the room, in no apparent acute distress. Eyes Other: No scleral icterus appreciated. Resp Other: Clear to auscultation bilaterally. Cardio Other: Tachycardic rate and regular rhythm. S1 and S2 heart sounds heard with no extra heart sounds or murmurs appreciated. No peripheral edema noted. GI Other: Soft, non-distended, non-tender. Bowel sounds present. Extrem Other: Palpable dorsalis pedis pulses bilaterally. Objective Labs Result Diagrams: 08/04/21 06:05 08/04/21 06:05 Labs: Laboratory Results - last 24 hr 08/01/21 18:08 Carbon Dioxide 9 L* PFSH Medical History Gastroparesis Retinopathy Surgical History No pertinent past surgical history Family History Family/Other No problems noted. Father Hypertension Social History Smoking Status: Never smoker alcohol intake: current Assessment & Plan Assessment & Plan narrative: Assessment: 1. DKA, likely secondary to malfunctioning insulin pump 2. Type I DM3. Gastroparesis 4. Diabetic neuropathy 5. Hx of being on control Plan: 1. Glucose has improved with insulin drip, along with closure of anion gap. Will overlap insulin drip with subcutaneous insulin 20 units, along with patient's use of home insulin pump. 2. A1c 14%. Patient has injectable insulin, per her report. Therefore, if insulin pump malfunctioning, patient reports she can inject insulin on discharge, until she returns home to [place], [place] this Monday and follows-up with her aircraft armorer next week. 3. IV Reglan does not appear to be helping the patient anymore. Will start IV Zofran and IV Dilaudid, as patient states this is what's helped her out in the past. 4. Will continue home duloxetine 40 mg daily. 5. patient is on norgestimate-ethinyl estradiol as outpatient. VTE prophylaxis: Lovenox 40 mg daily Disposition: Home, once clinically stable Time Spent With Patient Critical Care time: I spent a total of [] minutes of critical care time on this patient's care today; this time is exclusive of procedural time.
[2021-08-04 16:49] VITALS: BP 149/95; PULSE 82; RESP 18; TEMP 36.5; O2SAT 100
[2021-08-04] MEDS: PANTOPRAZOLE 40 MG VIAL IV (18:13)
[2021-08-04] MEDS: HYDROMORPHONE 1 MG INJ IV (18:13)
[2021-08-04 19:17] LABS: Carbon Dioxide 9 mmol/L (22-32)
[2021-08-04 19:50] VITALS: BP 125/77; PULSE 90; RESP 16; TEMP 36.6; O2SAT 98
[2021-08-04 23:20] VITALS: BP 135/82; PULSE 83; RESP 17; TEMP 36.4; O2SAT 99
[2021-08-05 04:00] VITALS: BP 130/79; PULSE 79; RESP 16; TEMP 36.3; O2SAT 98
[2021-08-05] MEDS: PANTOPRAZOLE DR 40 MG TABLET PO (06:02)
[2021-08-05] MEDS: DULOXETINE 20 MG CAPSULE 40 MG PO (08:58)
[2021-08-05] MEDS: ENOXAPARIN 40 MG/0.4 ML SYRINGE SUBCUT (08:58)
[2021-08-05 09:15] VITALS: BP 145/94; PULSE 81; RESP 16; TEMP 36.7; O2SAT 100
--- NOTE | 2021-08-05 09:32 | DIET.PN1 ---
Dietary Progress Note RD Note: Pt smiling and not nauseated this morning with better BG control. Pt has been tolerating smoothies and soups over the past 16h. Pt would like smoothie recipes and information about ONS Wilfrido. Ht: 165.1 cm Wt: 62.5 kg BMI: 22.9 Last BM: 08/03/21 (08/04/21 06:00) MNA: 9 [place] Score: 20 Diet: 08/03/21 Dinner Carbohydrate Consistent Diet Diet Modifications: Safety Tray needed?: No Carbohydrate level: Large (4 CHO) Bedtime snack: No Nutrition Percent Meal Consumed 10 08/04/21 19:50 Percent Meal Consumed 25% 08/03/21 18:54 Labs: RBC 3.97 X10^6/uL (4.0-5.2) L 08/04/21 06:05 Hgb 10.5 g/dL (12.0-16.0) L 08/04/21 06:05 Hct 31.5 % (36-46) L 08/04/21 06:05 Creatinine 0.52 mg/dL (0.52-1.04) 08/04/21 06:05 Hemoglobin A1c 13.7 % (4.0-6.0) H 08/02/21 05:07 Lactate 1.9 mmol/L (0.7-2.1) 08/01/21 16:25 Electronically Signed by: Domi Gaspar 08/05/21 09:32 Clinical Dietitian [address] [address]
[2021-08-05] MEDS: ONDANSETRON 4 MG ODT PO (14:16)
[2021-08-05] MEDS: HYDROMORPHONE 2 MG TABLET PO (14:16)
[2021-08-05] MEDS: BENZOCAINE/MENTHOL 1 LOZ PKT 1 EACH PO (14:16)
--- NOTE | 2021-08-05 14:28 | PM.PN.1 ---
Subjective Subjective Interval history: Patient reports significant improvement in her n/v after receiving IV zofran and IV Dilaudid. She reports being able to keep PO intake down. Blood glucose has been well-controlled after receiving Lantus 20 units along with her home insulin regimen. She endorses wanting to go home. Exam Vital Signs (past 8 hours): - 08/05/21 09:15 Temperature 98.1 F Pulse Rate 81 Respiratory Rate 16 Blood Pressure 145/94 H Pulse Oximetry 100 Oxygen Delivery Method Room Air Oxygen Flow Rate 0 Narrative Exam Narrative: Const Other: Laying in bed comfortably upon my entering the room, in no apparent acute distress. Eyes Other: No scleral icterus appreciated. Resp Other: Clear to auscultation bilaterally. Cardio Other: Regular rate and rhythm. S1 and S2 heart sounds heard with no extra heart sounds or murmurs appreciated. No peripheral edema noted. GI Other: Soft, non-distended, non-tender. Bowel sounds present. Extrem Other: Palpable dorsalis pedis pulses bilaterally. Objective Labs Result Diagrams: 08/04/21 06:05 08/04/21 06:05 Labs: Laboratory Results - last 24 hr 08/01/21 18:08 Carbon Dioxide 9 L* PFSH Medical History Gastroparesis Retinopathy Surgical History No pertinent past surgical history Family History Family/Other No problems noted. Father Hypertension Social History Smoking Status: Never smoker alcohol intake: current Assessment & Plan Assessment & Plan narrative: Assessment: 1. DKA, likely secondary to malfunctioning insulin pump 2. Type I DM 3. Gastroparesis 4. Diabetic neuropathy 5. Hx of being on control 6. Hx of taking phentermine Plan: 1. Glucose has improved with insulin drip, along with closure of anion gap. Will overlap insulin drip with subcutaneous insulin 20 units, along with patient's use of home insulin pump. 2. A1c 14%. Patient has injectable insulin, per her report. Therefore, if insulin pump malfunctioning, patient reports she can inject insulin on discharge, until she returns home to [place], [place] this Monday and follows-up with her system dispatcher next week. 3. IV Reglan does not appear to be helping the patient anymore. Will start IV Zofran and IV Dilaudid, as patient states this is what's helped her out in the past. 4. Will continue home duloxetine 40 mg daily. 5. patient is on norgestimate-ethinyl estradiol as outpatient. 6. Patient admits to taking phentermine in the past for weight loss. This likely contributed to her tachycardia. I extensively discussed with her the long-term deleterious effects of phentermine and advised to discontinue taking it outpatient. VTE prophylaxis: Lovenox 40 mg daily Disposition: Home today Time Spent With Patient Critical Care time: I spent a total of [] minutes of critical care time on this patient's care today; this time is exclusive of procedural time.
--- NOTE | 2021-08-05 14:36 | P.DS_ITS ---
History of Present Illness History of Present Illness Chief complaint: throwing up, diabetic Narrative: 26yo female with a hx of type 1 DM and gastroparesis that presented in DKA secondary to a malfunctioning insulin pump. The patient improved on IV fluids, insulin drip. She was then transitioned to Lantus 20 units daily, along with continuing her insulin regimen from home. IV zofran and IV dilaudid seemed to have controlled her gastroparesis n/v well. She was discharged home and reports she has appropriate follow-up with her morphology teacher next week. 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 08/01/21 18:05 Consult to Dietitian, Adult Routine Comment: Reason For Exam: low BMI 08/03/21 15:00 Consult to Dietitian, Adult Routine Comment: Reason For Exam: recommendation for increased oral intake Discharge provider: Anthony Shook MD Exam Vital Signs (past 8 hours): - 08/05/21 09:15 Temperature 98.1 F Pulse Rate 81 Respiratory Rate 16 Blood Pressure 145/94 H Pulse Oximetry 100 Oxygen Delivery Method Room Air Oxygen Flow Rate 0 Objective Labs Result Diagrams: 08/04/21 06:05 08/04/21 06:05 Labs: Laboratory Results - last 24 hr 08/01/21 18:08 Carbon Dioxide 9 L* PFSH Medical History Gastroparesis Retinopathy Surgical History No pertinent past surgical history Family History Family/Other No problems noted. Father Hypertension Social History Smoking Status: Never smoker alcohol intake: current Discharge Plan Discharge orders & Medications Prescriptions: Continued metformin 500 mg Tablet 1,000 mg PO BID 0RF minocycline 100 mg capsule 100 mg PO DAILY 0RF Label Comments: TAKE ONE CAPSULE BY MOUTH EVERY DAY ondansetron 8 mg Tablet,Disintegrating 8 mg PO Q8H PRN (Reason: blood sugar) 0RF norgestimate-ethinyl estradiol [Tri-Estarylla] 0.18/0.215/0.25 mg-35 mcg (28) tablet 1 tab PO DAILY 0RF Label Comments: TAKE ONE TABLET BY MOUTH EVERY DAY. begin the monday after the start of your next menstrual cycle insulin aspart U-100 100 unit/mL Cartridge 1 sliding scale dose SUBCUT USEASDIRECTD 0RF Rx Instructions: Patient has insulin pump duloxetine 40 mg capsule,delayed release(DR/EC) 40 mg PO DAILY 0RF Label Comments: TAKE ONE CAPSULE BY MOUTH DAILY Discontinued phentermine 37.5 mg Tablet 18.75 mg PO BID 0RF
[2021-08-05 15:30] VITALS: BP 145/92; PULSE 91; RESP 16; TEMP 36.6; O2SAT 100
--- NOTE | 2021-08-05 17:20 | DI.RAD.S_ITS ---
PROCEDURE: XR ABDOMEN 1V INDICATIONS: abdominal pain, nausea TECHNIQUE: One view of the abdomen acquired. COMPARISON: None. FINDINGS: Surgical changes and devices: None. Bowel: Bowel gas pattern is within normal limits. Soft tissues: No suspicious abdominal calcifications. Bones: No suspicious bony lesions. IMPRESSION: 1. Bowel gas pattern within normal limits. Dictated by: Ronny Cheng M.D. on 08/05/2021 at 18:52 Approved by: Ronny Cheng M.D. on 08/05/2021 at 18:53
[2021-08-05] MEDS: HYDROMORPHONE 1 MG INJ IV ×2 (17:44→21:37)
[2021-08-05] MEDS: ONDANSETRON 4 MG/2 ML INJ IV ×2 (17:44→21:37)
--- NOTE | 2021-08-05 17:59 | PC.NURSE ---
Pt very nauseated and with emesis, also pain to abdomen 04/27. Discussed with Dr. Shook-sylvain IV start to RAC, IVF ordered, abdominal x-ray taken. Zofran IV 4mg and Dilaudid IV 1mg given to treat. BG 101 per Pt monitor-insulin suspended at this time.
[2021-08-05] MEDS: SODIUM CHLORIDE 0.9% 1,000 ML 100 ML IV (18:05)
[2021-08-05 21:00] VITALS: BP 119/76; PULSE 89; RESP 16; TEMP 35.9; O2SAT 98
[2021-08-06 01:00] VITALS: BP 111/73; PULSE 79; RESP 16; TEMP 36.2; O2SAT 99
[2021-08-06] MEDS: SODIUM CHLORIDE 0.9% 1,000 ML 100 ML IV (04:14)
[2021-08-06 05:00] VITALS: BP 118/82; PULSE 82; RESP 16; TEMP 36.6; O2SAT 100
[2021-08-06] MEDS: PANTOPRAZOLE DR 40 MG TABLET PO (06:12)
[2021-08-06] MEDS: ENOXAPARIN 40 MG/0.4 ML SYRINGE SUBCUT (08:59)
[2021-08-06] MEDS: DULOXETINE 20 MG CAPSULE 40 MG PO (08:59)
[2021-08-06 09:36] VITALS: BP 122/80; PULSE 75; RESP 18; TEMP 36.7; O2SAT 100
--- NOTE | 2021-08-06 13:03 | DIET.PN1 ---
Dietary Progress Note Assessment: Lizzy reports feeling much better. Reports last DKA episode was earlier this year in Oct/Nov. States she has been on Metformin most her life. Also was taking phentermine for weight loss last year. States she has not been taking it this year. UBW reported as 140#, but last year reports weight was 150-160#. States she would like to see an RD/CDCES once she returns home and sees endo. Reviewed BG readings from finger sticks and CGM. Dexcom seems to be functioning properly. BG much improved. Denies any questions at this time. Ht: 165.1 cm Wt: 62.5 kg BMI: 22.9 Last BM: 08/03/21 (08/04/21 06:00) MNA: 9 Julián Score: 23 Diet: 08/03/21 Dinner Carbohydrate Consistent Diet Diet Modifications: Safety Tray needed?: No Carbohydrate level: Large (4 CHO) Bedtime snack: No Nutrition Percent Meal Consumed 50% 08/06/21 09:36 Percent Meal Consumed 0% 08/05/21 14:00 Percent Meal Consumed 10 08/04/21 19:50 Labs: RBC 3.97 X10^6/uL (4.0-5.2) L 08/04/21 06:05 Hgb 10.5 g/dL (12.0-16.0) L 08/04/21 06:05 Hct 31.5 % (36-46) L 08/04/21 06:05 Creatinine 0.52 mg/dL (0.52-1.04) 08/04/21 06:05 Hemoglobin A1c 13.7 % (4.0-6.0) H 08/02/21 05:07 Lactate 1.9 mmol/L (0.7-2.1) 08/01/21 16:25 Interventions: 1. Discussed metformin in T1DM 2. Discussed SE of phentermine 3. Encouraged DM ed and nutrition therapy OP follow-up Monitoring/Evaluations: consult prn Electronically Signed by: Dior Mazariegos 08/06/21 13:03 Clinical Dietitian, [address] [address]
--- NOTE | 2021-08-06 13:54 | PM.PN.1 ---
Subjective Subjective Interval history: Patient reports resolution of n/v from yesterday to today. She reports improvement in her heartburn, too. She denies any more abdominal pain. Blood glucose has been well-controlled on her current at-home insulin regimen. She is requested Zofran tablets for home. She reports being ready to go home. Exam Vital Signs (past 8 hours): - 08/06/21 09:36 Temperature 98.1 F Pulse Rate 75 Respiratory Rate 18 Blood Pressure 122/80 Pulse Oximetry 100 Oxygen Delivery Method Room Air Oxygen Flow Rate 0 Narrative Exam Narrative: Const Other: Laying in bed comfortably upon my entering the room, in no apparent acute distress. Eyes Other: No scleral icterus appreciated. Resp Other: Clear to auscultation bilaterally. Cardio Other: Regular rate and? rhythm. S1 and S2 heart sounds heard with no extra heart sounds or murmurs appreciated. No peripheral edema noted. GI Other: Soft, non-distended, non-tender. Bowel sounds present. Extrem Other: Palpable dorsalis pedis pulses bilaterally. Objective Labs Result Diagrams: 08/04/21 06:05 08/04/21 06:05 [facility] Medical History Gastroparesis Retinopathy Surgical History No pertinent past surgical history Family History Family/Other No problems noted. Father Hypertension Social History Smoking Status: Never smoker alcohol intake: current Assessment & Plan Assessment & Plan narrative: Assessment: 1. DKA, likely secondary to malfunctioning insulin pump, resolved 2. Type I DM 3. Gastroparesis 4. Diabetic neuropathy 5. Hx of being on control 6. Hx of taking phentermine Plan: 1. Improved with insulin drip, Lantus 20 units bid inpatient. Patient's father brought in home insulin regimen. This seems to have controlled blood glucose over last 24 hrs, too. 2. A1c 14%. Patient has injectable insulin, per her report. Home insulin regimen has been working for her inpatient. 3. IV Reglan did not help the patient. IV Zofran and IV Dilaudid did. Will discharge with Zofran for home. 4. Will continue home duloxetine 40 mg daily. 5. patient is on norgestimate-ethinyl estradiol as outpatient. 6. Patient admits to taking phentermine in the past for weight loss. This likely contributed to her tachycardia. I extensively discussed with her the long-term deleterious effects of phentermine and advised to discontinue taking it outpatient. VTE prophylaxis: Lovenox 40 mg daily Disposition: Home today CODE: Full Proxy: Mr. Olivares (father) I have utilized all available immediate resources to obtain, update, or review the patient's current medications. Time Spent With Patient Critical Care time: I spent a total of [] minutes of critical care time on this patient's care today; this time is exclusive of procedural time. Time Spent With Patient Critical Care time: I spent a total of [] minutes of critical care time on this patient's care today; this time is exclusive of procedural time.
--- NOTE | 2021-08-06 14:05 | P.DS_ITS ---
History of Present Illness History of Present Illness Chief complaint: throwing up, diabetic Narrative: 26yo female with a hx of type 1 DM managed on insulin pump at home that presented in DKA, likely secondary to malfunctioning pump. DKA resolved with insulin drip, IV fluids. Drip was stopped after overlap with Lantus 20 units bid. Gastroparesis control became a challenge during this admission. IV Reglan was not effective. However, IV Zofran and Dilaudid were able to calm the n/v from gastroparesis. She was discharged on PO Zofran for home. She reports a close follow-up with her public housing interviewer next week. 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 DKA, likely secondary to malfunctioning insulin pump, resolved 2. Type I DM 3. Gastroparesis 4. Diabetic neuropathy 5. Hx of being on control 6. Hx of taking phentermine Hospital Course: 26yo female with a hx of type 1 DM managed on insulin pump at home that presented in DKA, likely secondary to malfunctioning pump. DKA resolved with insulin drip, IV fluids. Drip was stopped after overlap with Lantus 20 units bid. Gastroparesis control became a challenge during this admission. IV Reglan was not effective. However, IV Zofran and Dilaudid were able to calm the n/v from gastroparesis. She was discharged on PO Zofran for home. She reports a close follow-up with her public housing interviewer next week.? Exam Vital Signs (past 8 hours): - 08/06/21 09:36 Temperature 98.1 F Pulse Rate 75 Respiratory Rate 18 Blood Pressure 122/80 Pulse Oximetry 100 Oxygen Delivery Method Room Air Oxygen Flow Rate 0 Objective Labs Result Diagrams: 08/04/21 06:05 08/04/21 06:05 PFSH Medical History Gastroparesis Retinopathy Surgical History No pertinent past surgical history Family History Family/Other No problems noted. Father Hypertension Social History Smoking Status: Never smoker alcohol intake: current Discharge Assessment & Plan Assessment and Plan Assessment: Assessment: 1. DKA, likely secondary to malfunctioning insulin pump, resolved 2. Type I DM 3. Gastroparesis 4. Diabetic neuropathy 5. Hx of being on control 6. Hx of taking phentermine Plan of Treatment: Plan: 1. Improved with insulin drip, Lantus 20 units bid inpatient. Patient's father brought in home insulin regimen. This seems to have controlled blood glucose over last 24 hrs, too. 2. A1c 14%. Patient has injectable insulin, per her report. Home insulin regimen has been working for her inpatient. 3. IV Reglan did not help the patient. IV Zofran and IV Dilaudid did. Will discharge with Zofran for home. 4. Will continue home duloxetine 40 mg daily. 5. patient is on norgestimate-ethinyl estradiol as outpatient. 6. Patient admits to taking phentermine in the past for weight loss. This likely contributed to her tachycardia. I extensively discussed with her the long-term deleterious effects of phentermine and advised to discontinue taking it outpatient. VTE prophylaxis: Lovenox 40 mg daily Disposition: Home today CODE: Full Proxy: Mr. Olivares (father) I have utilized all available immediate resources to obtain, update, or review the patient's current medications. Time Spent With Patient Critical Care time: I spent a total of [] minutes of critical care time on this patient's care today; this time is exclusive of procedural time. Discharge Plan Discharge Plan Patient Disposition: Home Discharge orders & Medications Prescriptions: New ondansetron HCl [Zofran] 4 mg tablet 4 mg PO Q8H PRN (Reason: nausea and vomiting) 10 Days Qty: 30 0RF Continued metformin 500 mg Tablet 1,000 mg PO BID 0RF minocycline 100 mg capsule 100 mg PO DAILY 0RF Label Comments: TAKE ONE CAPSULE BY MOUTH EVERY DAY ondansetron 8 mg Tablet,Disintegrating 8 mg PO Q8H PRN (Reason: blood sugar) 0RF norgestimate-ethinyl estradiol [Tri-Estarylla] 0.18/0.215/0.25 mg-35 mcg (28) tablet 1 tab PO DAILY 0RF Label Comments: TAKE ONE TABLET BY MOUTH EVERY DAY. begin the monday after the start of your next menstrual cycle insulin aspart U-100 100 unit/mL Cartridge 1 sliding scale dose SUBCUT USEASDIRECTD 0RF Rx Instructions: Patient has insulin pump duloxetine 40 mg capsule,delayed release(DR/EC) 40 mg PO DAILY 0RF Label Comments: TAKE ONE CAPSULE BY MOUTH DAILY Discontinued phentermine 37.5 mg Tablet 18.75 mg PO BID 0RF
--- NOTE | 2021-08-06 15:06 | PC.NURSE ---
Pt A&O x3 this a.m. VSS, afebrile on RA. She denies nausea this a.m. no emesis ambulating around her room with a steady gait. BG at 0900 she reports from her sensor 125 and she is able to eat a small breakfast. At noon BG 217 and she does her own sliding scale with her pump. She has no s/sx of hypo/hyperglycemia. Father at bedside supportive. MD at bedside this a.m. clearing patient for discharge this afternoon. She verbalizes discharge instructions, medications and recommendation to follow up with endocronologist back in [place]. She is escorted by w/ch to private vehicle with father and alll of her belongings at approximately 1415.
== END 2021-08-06 14:15 | disposition home or self-care (01) | DRG 919 ==
LOC: ED 14:54 → ICU 18:02 → AC 08-02 15:10 → ICU 08-02 15:10 → AC 08-04 01:35
PROVIDERS: Internal Medicine Critical Care Medicine; Nurse Practitioner Family; Student in an Organized Health Care Education/Training Program; Admitting Provider Internal Medicine; Emergency Provider Emergency Medicine; Referring Provider Emergency Medicine; Visit Provider Internal Medicine
DX: T85.694A Other mechanical complication of insulin pump, initial encounter (principal); E10.10 Type 1 diabetes mellitus with ketoacidosis without coma; G93.41 Metabolic encephalopathy; Z96.41 Presence of insulin pump (external) (internal); Z79.4 Long term (current) use of insulin; Z79.84 Long term (current) use of oral hypoglycemic drugs; E10.43 Type 1 diabetes mellitus with diabetic autonomic (poly)neuropathy; K31.84 Gastroparesis; T38.3X6A Underdosing of insulin and oral hypoglycemic [antidiabetic] drugs, initial encounter; R00.0 Tachycardia, unspecified; Z20.822 Contact with and (suspected) exposure to COVID-19
CPT/HCPCS: 36415; 71045; 74018; 80048; 80053; 80305; 81001; 82009; 82805; 82962; 83036; 83605; 83735; 83930; 84145; 84703; 85025; 87040; 87077; 87086; 87147; 87186; 87635; 87797; 93005; 96361; 96365; 96375; 99284; 99291; 99292; C9803; C9113; J0696; J1170; J1650; J2405; J2765; J3475